=== PATIENT | male | born 1950 | race Caucasian/White ===

== ENCOUNTER → 2016-12-16 | Outpatient (CLI) | payer OTHER ==
[~2016-12-16] MED LIST: CLOP1TAB15 PO; EZET10TA63 PO; METO25TA3 PO; SIMV40TA2 PO
== END | disposition home or self-care (01) ==
LOC: C.LABSPEC 14:48
PROVIDERS: ATTEND Internal Medicine
DX: Z12.11 Encounter for screening for malignant neoplasm of colon (principal)

== ENCOUNTER → 2017-05-05 | Outpatient (CLI) | payer OTHER ==
[2017-05-05 13:19] LABS: ESTIMATED AVERAGE GLUCOSE 128 mg/dl; HA1C FLAG Normal (Normal)
[2017-05-05 13:51] LABS: BLOOD UREA NITROGEN 17 mg/dl (7-18); CALCIUM 8.8 mg/dl (8.5-10.1); CARBON DIOXIDE 27 mmol/L (21-32); CHLORIDE 108 mmol/L (98-107); CHOLESTEROL 130 mg/dl (0-200); GLUCOSE 124 mg/dl (70-99); POTASSIUM 4.1 mmol/L (3.5-5.1); SODIUM 140 mmol/L (136-145); TRIGLYCERIDES 182 mg/dl (0-150); VERY LOW DENSITY LIPOPROT CALC 36 mg/dl
[2017-05-05 13:56] LABS: CHOLESTEROL/HDL RATIO 3.9; HDL CHOLESTEROL 33 mg/dl
== END | disposition home or self-care (01) ==
LOC: C.LABSPEC 12:15
PROVIDERS: ATTEND Internal Medicine
DX: I25.10 Atherosclerotic heart disease of native coronary artery without angina pectoris (principal); E78.5 Hyperlipidemia, unspecified; R73.9 Hyperglycemia, unspecified

== ENCOUNTER → 2017-09-08 | Outpatient (CLI) | payer OTHER ==
[~2017-09-08] MED LIST changes: +ATOR-24 PO; +LISI2.5T5 PO; +OMEG10007 PO; +OXYC-57 PO
[2017-09-08 09:58] LABS: BASO % 0.4 %; BASO ABS # 0.03 K/uL (0-0.2); COMPLETE YES; EOS % 3.6 %; HEMATOCRIT 45.6 % (42-52); IG% 0.3 %; LYMPH % 29.3 %; MEAN CELL VOLUME 88.4 fL (80-100); MEAN CORPUSCULAR HEMOGLOBIN 30.2 pg (25-34); MEAN CORPUSCULAR HGB CONC 34.2 g/dl (32-36); MONO % 7.7 %; NEUT % 58.7 %; PLATELET COUNT 146 K/uL (130-400); RED BLOOD COUNT 5.16 M/uL (4.7-6.1); WHITE BLOOD COUNT 7.84 K/uL (4.8-10.8)
[2017-09-08 10:05] LABS: BLOOD UREA NITROGEN 18 mg/dl (7-18); BUN/CREATININE RATIO 16.5 (10-20); CALCIUM 8.9 mg/dl (8.5-10.1); CARBON DIOXIDE 26 mmol/L (21-32); CHLORIDE 106 mmol/L (98-107); CREATININE 1.12 mg/dl (0.60-1.40); GLUCOSE 130 mg/dl (70-99); POTASSIUM 3.8 mmol/L (3.5-5.1); SODIUM 136 mmol/L (136-145)
== END | disposition home or self-care (01) ==
LOC: C.CPL 08:12
PROVIDERS: ATTEND Orthopaedic Surgery
DX: M75.121 Complete rotator cuff tear or rupture of right shoulder, not specified as traumatic (principal)

== ENCOUNTER → 2017-09-15 | Day surgery (SDC) | payer OTHER ==
[2017-09-09 12:32] VITALS: Ht 182.9 cm; Wt 115.0 kg
[~2017-09-15] VITALS: Ht 182.9 cm; Wt 115.0 kg
[~2017-09-15] MED LIST changes: +ATROPINE SULFATE 0.1 MG/ML 5ML SYR IV PRN; +BUPIVACAINE/EPINEPHRINE 0.25% 1:200,000 30 ML VIAL ONE; +CEFAZOLIN 2000MG IV PUSH 10 ML IV SCH; -EZET10TA63 PO; +EpHEDrine SULFATE INJ 50 MG/ML AMP IV PRN; +EpINEphrine INJ 1MG/ML AMP 1 MG/ML AMP ONE; +FENTANYL CITRATE INJ 50 MCG/1 ML 2 ML VIAL IV PRN; +FENTANYL CITRATE INJ 50 MCG/1 ML 2 ML VIAL ONE; +LACTATED RINGER'S 1000ML 1,000 ML IV SCH; +LISI-1116 PO; -LISI2.5T5 PO; +MIDAZOLAM HCL 1 MG/ML 2ML VIAL ONE; +ONDANSETRON INJ 2 MG/ML 2 ML VIAL IV PRN; +OXYCODONE/ACETAMINOPHEN 5-325 TAB PO PRN; +PROPOFOL IV EMULSION 10 MG/ML 20 ML VIAL IV ONE; +ROPIVACAINE 0.5% 5 MG/ML 30 ML VIAL ONE; -SIMV40TA2 PO; +SODIUM CHLORIDE 0.9% 1000ML 1,000 ML IV SCH
--- NOTE | 2017-09-15 11:12 | History & Physical Bridge - [place] ---
H&P Re-Evaluation Bridge Note: I have examined the patient, reviewed the History & Physical and in the interval since the performance of the History & Physical I have noted the following changes of clinical significance: No changes noted
--- NOTE | 2017-09-15 14:10 | [facility] Post Operative Brief Note ---
Immediate Operative Summary Operative Date Sep 15, 2017. Pre-Operative Diagnosis Right Shoulder Full Thickness Rotator Cuff Tear Post-Operative Diagnosis Same Procedure(s) Performed Right Shoulder Arthroscopy, Large Rotator Cuff Repair Surgeon Dr. Wilder Police Records Clerk Surgeon(s) David Hall PA-C Estimated Blood Loss 5 ml Findings as above Specimens None Complication(s) None Disposition Recovery Room / PACU
[2017-09-15 14:11] VITALS: TEMP 36.3
--- NOTE | 2017-09-15 14:12 | Discharge Instructions-SurgCtr ---
Discharge Instructions Date of Service Sep 15, 2017. Visit Reason for Visit: Right Shoulder Full Thickness Rotator Cuff Tear Discharge Discharge Diagnosis / Problem: SAME ABOVE Discharge Goals Goal(s): Decrease discomfort, Improve function Medications Stopped Medications Name(s): Last took Plavix and fish oil 09/07/17. Restart Stopped Medication(s): MAY RESTART 09/16/2017 Activity Recommendations Activity Limitations: as noted below Lifting Limitations: until after follow-up appointment Exercise/Sports Limitations: until after follow-up appointment Shower/Bathe: tomorrow Anesthesia . Post Anesthesia Instructions: If you have had General Anesthesia or IV Sedation: * Do not drive today. * Resume driving when surgeon permits. * Do not make important decisions or sign legal documents today. * Call surgeon for: 1. Temperature elevations greater than 101 degrees F. 2. Uncontrollable pain. 3. Excessive bleeding. 4. Persistent nausea and vomiting. 5. Medication intolerance (nausea, vomiting or rash). * For nausea and vomiting use only clear liquids such as: tea, soda, bouillon until nausea subsides, then gradually increase diet as tolerated. * If you have any concerns or questions, call your surgeon's office. If physician is unavailable and it is an emergency, call 911 or go to the nearest emergency room. . Instructions / Follow-Up Instructions / Follow-Up MEDICATIONS: * Resume previous medications unless instructed otherwise by your surgeon. * Always take pain medication on a full stomach or with food to avoid upset stomach. * Do not drink alcohol or drive while taking narcotics. * Ibuprofen or Tylenol may be taken if narcotic not needed. SPECIAL CARE INSTRUCTIONS: __ None _X_ Keep extremity elevated and iced x 48 hours; apply ice 20-30 minutes 8-10 times/day. May remove at night. __ Sling __24 hrs/day __ Remove at night _X_ Shoulder Immobilizer (MAY REMOVE AFTER 48 HOURS ONLY TO SHOWER) _X_ 24 hrs/day __ Remove at night _X_ Dressing __ Maintain until seen in office, may shower with plastic over site _X_ Remove dressings in 24-48 hours and then may shower _X_ Cover incisions with band-aids after showering __ Do not remove steri-strips Call physician if chills or temperature rises above 102 degrees or pain unrelieved by prescribed pain medications at . . Diet Recommendations Home Diet: no limitations Fluid Restriction: None Procedures Procedures Performed: Right Shoulder Arthroscopy, Large Rotator Cuff Repair Pending Studies Studies pending at discharge: no Work Instructions Return To Work: after follow-up Lifting Limitations: NO LIFTING WITH RIGHT ARM Medical Emergencies . Who to Call and When: Medical Emergencies: If at any time you feel your situation is an emergency, please call 911 immediately. . Non-Emergent Contact Non-Emergency issues call your: Primary Care Provider Call Non-Emergent contact if: you have a fever, temperature is above 101.5 . . "Provider Documentation" section prepared by Juan Hall. .
--- NOTE | 2017-09-15 14:28 | Anesthesia Progress Nt - [facility] ---
Anesthesia Post Op Note Date & Time Sep 15, 2017 at 14:28 Vital Signs Pain Intensity: 0 Vital Signs Past 12 Hours Date Time Temp Pulse Resp B/P (MAP) Pulse Ox O2 Delivery O2 Flow Rate FiO2 09/15/17 14:11 36.3 69 16 138/91 (107) 94 Room Air 09/15/17 12:36 70 17 97 09/15/17 12:36 71 09/15/17 12:35 126/80 09/15/17 12:31 68 17 96 09/15/17 12:31 69 09/15/17 12:30 123/76 09/15/17 12:26 74 09/15/17 12:26 75 34 87 09/15/17 12:25 121/78 09/15/17 12:21 69 09/15/17 12:21 69 17 97 09/15/17 12:20 116/71 09/15/17 12:16 70 16 97 09/15/17 12:16 69 09/15/17 12:15 119/73 09/15/17 12:11 76 26 97 09/15/17 12:11 74 09/15/17 12:10 122/75 09/15/17 12:08 71 17 96 09/15/17 12:08 72 09/15/17 12:05 121/77 09/15/17 12:03 70 09/15/17 12:03 71 17 97 09/15/17 12:00 117/79 09/15/17 11:58 75 20 95 09/15/17 11:58 75 09/15/17 11:55 120/84 09/15/17 11:53 73 17 126/85 97 09/15/17 11:53 73 09/15/17 11:48 78 09/15/17 11:48 79 0 94 09/15/17 11:43 65 09/15/17 11:43 66 0 94 09/15/17 11:38 63 09/15/17 11:38 64 0 95 09/15/17 11:33 68 0 93 09/15/17 11:33 67 09/15/17 10:19 36.4 69 18 129/99 (109) 95 Room Air Notes Mental Status: alert / awake / arousable, participated in evaluation Pt Amnestic to Procedure: Yes Nausea / Vomiting: adequately controlled Pain: adequately controlled Airway Patency, RR, SpO2: stable & adequate BP & HR: stable & adequate Hydration State: stable & adequate Anesthetic Complications: no major complications apparent
--- NOTE | 2017-09-15 14:36 | OPERATIVE REPORT ---
DATE OF OPERATION: 09/15/2017 PREOPERATIVE DIAGNOSIS: Large right rotator cuff tear. POSTOPERATIVE DIAGNOSIS: Same. PROCEDURE: Right shoulder diagnostic arthroscopy with limited debridement, acromioplasty, large rotator cuff repair and arthroscopic biceps tenodesis. SURGEON: Dr. Gian Wilder. SYSTEMS ANALYST ENGINEER: Juan Hall PA-C, whose assistance was necessary for positioning the arm and helping with the instrumentation. ANESTHESIA: General with a right interscalene nerve block. COMPLICATIONS: None. CONDITION: Stable to PACU. INDICATIONS: Chava is a pleasant 67-year-old male who was loading a cooler into the back of a car about a month ago when he felt a pop in his shoulder. He has been unable to forward elevate his arm. MRI showed a large rotator cuff tear. He elected to undergo arthroscopy. On 09/15/2017, he arrived at [facility] for the above procedure. He was seen in the preoperative holding area and the operative extremity was identified and signed. He was given a preoperative antibiotic and a right interscalene nerve block. He was taken back to the operating room, laid on the table in supine position and put under general anesthesia. He was then put into the beachchair position. The right shoulder was prepped and draped in sterile fashion. Time-out was done and the patient and operative extremity was properly identified. A scope was introduced in the posterior portal. Diagnostic arthroscopy showed no cartilage damage to the humeral head or the glenoid. There was some fraying of the anterior labrum. The biceps tendon was intact, but significantly frayed. The subscapularis was intact. There was a tear of the entire supraspinatus and upper half of the infraspinatus. The remainder of the infraspinatus and teres minor were intact. An anterior portal was made. A shaver was used to do a limited debridement of the intraarticular structures and the biceps tendon was arthroscopically tenotomized for later tenodesis. A scope was then put into the subacromial space. A lateral portal was made. A shaver was used to do a complete subacromial and subdeltoid bursectomy. An ablator was used to tease the coracoacromial ligament off the undersurface of the acromion and a 5-0 jet was used to complete an acromioplasty of a large Bigliani type 3 acromion. A shaver was used to remove any excess debris and attention was turned to the rotator cuff. An additional anterolateral portal was made and Shayla cannulas were placed in each of the lateral portals. There was a large crescent shaped rotator cuff tear. The greater tuberosity was prepared with a ring curette and a microfracture. The rotator cuff was then fixed with an Arthrex SpeedBridge configuration using 4.75 mm BioComposite SwiveLock suture anchors and FiberTapes. This gave a nice knotless SpeedBridge repair. Multiple pictures were taken. The long head of the biceps tendon was tagged with an Arthrex FiberLink and incorporated into the anterior lateral anchor to complete an arthroscopic biceps tenodesis. Multiple pictures were taken. The scope was placed back into the glenohumeral joint and the articular margin of rotator cuff had been restored. Pictures were taken. Arthroscopic instruments were removed from the shoulder. Portal sites were closed with 3-0 nylon. He was then placed in a soft dressing and an abduction arm sling. He was then extubated, transferred to a litter and taken to the postanesthesia care unit in stable condition. He tolerated the procedure well. I attest to the content of the Intraoperative Record and any orders documented therein. Any exception s are noted below.
[2017-09-15 14:37] VITALS: BP 114/75; PULSE 66; O2SAT 95
== END | disposition home or self-care (01) ==
LOC: X.SURG 09:59
PROVIDERS: ATTEND Orthopaedic Surgery
DX: S46.011A Strain of muscle(s) and tendon(s) of the rotator cuff of right shoulder, initial encounter (principal); X50.0XXA Overexertion from strenuous movement or load, initial encounter; I25.10 Atherosclerotic heart disease of native coronary artery without angina pectoris; I25.2 Old myocardial infarction; I50.9 Heart failure, unspecified; Z95.5 Presence of coronary angioplasty implant and graft; E66.9 Obesity, unspecified; Z79.899 Other long term (current) drug therapy

== ENCOUNTER → 2017-12-27 | Outpatient (CLI) | payer OTHER ==
[~2017-12-27] MED LIST changes: -ATROPINE SULFATE 0.1 MG/ML 5ML SYR IV PRN; -BUPIVACAINE/EPINEPHRINE 0.25% 1:200,000 30 ML VIAL ONE; -CEFAZOLIN 2000MG IV PUSH 10 ML IV SCH; -EpHEDrine SULFATE INJ 50 MG/ML AMP IV PRN; -EpINEphrine INJ 1MG/ML AMP 1 MG/ML AMP ONE; -FENTANYL CITRATE INJ 50 MCG/1 ML 2 ML VIAL IV PRN; -FENTANYL CITRATE INJ 50 MCG/1 ML 2 ML VIAL ONE; -LACTATED RINGER'S 1000ML 1,000 ML IV SCH; -MIDAZOLAM HCL 1 MG/ML 2ML VIAL ONE; -ONDANSETRON INJ 2 MG/ML 2 ML VIAL IV PRN; -OXYCODONE/ACETAMINOPHEN 5-325 TAB PO PRN; -PROPOFOL IV EMULSION 10 MG/ML 20 ML VIAL IV ONE; -ROPIVACAINE 0.5% 5 MG/ML 30 ML VIAL ONE; -SODIUM CHLORIDE 0.9% 1000ML 1,000 ML IV SCH
[2018-01-02 18:21] LABS: FECAL OCCULT BLOOD #1 NEGATIVE (NEGATIVE); FECAL OCCULT BLOOD #2 NEGATIVE (NEGATIVE); FECAL OCCULT BLOOD #3 NEGATIVE (NEGATIVE)
== END | disposition home or self-care (01) ==
LOC: C.LABSPEC 17:24
PROVIDERS: ATTEND Internal Medicine
DX: Z12.11 Encounter for screening for malignant neoplasm of colon (principal)

== ENCOUNTER → 2018-04-28 | Outpatient (CLI) | payer OTHER ==
[~2018-04-28] MED LIST changes: -OXYC-57 PO
[2018-04-28 13:26] LABS: ALBUMIN 3.8 gm/dl (3.4-5.0); ALKALINE PHOSPHATASE 70 U/L (45-117); ALT/SGPT 51 U/L (12-78); AST/SGOT 32 U/L (15-37); BLOOD UREA NITROGEN 16 mg/dl (7-18); CALCIUM 8.6 mg/dl (8.5-10.1); CARBON DIOXIDE 24 mmol/L (21-32); CHOLESTEROL 120 mg/dl (0-200); GLUCOSE 114 mg/dl (70-99); HEMOGLOBIN A1C 6.1 % (4.5-5.6); LDL CHOLESTEROL CALCULATED 47 mg/dl; POTASSIUM 4.1 mmol/L (3.5-5.1); SODIUM 137 mmol/L (136-145); TOTAL PROTEIN 7.5 gm/dl (6.4-8.2)
== END | disposition home or self-care (01) ==
LOC: C.LABSPEC 12:40
PROVIDERS: ATTEND Internal Medicine Cardiovascular Disease
DX: R73.9 Hyperglycemia, unspecified (principal); I11.9 Hypertensive heart disease without heart failure; I51.9 Heart disease, unspecified; E78.00 Pure hypercholesterolemia, unspecified

== ENCOUNTER 2023-10-13 09:31 | Observation (INO) ==
[2023-10-13 10:20] LABS: Basophils # (auto) 0.04 K/uL (0.00-0.20); Basophils % (auto) 0.3 %; Eosinophils # (auto) 0.12 K/uL (0.00-0.50); Eosinophils % (auto) 0.8 %; Hematocrit (blood only) 38.4 % (42.0-52.0); Hemoglobin 12.6 g/dl (14.0-18.0); Immature Granulocytes # (auto) 0.05 K/uL (0.01-0.20); Immature Granulocytes % (auto) 0.3 %; Lymphocytes % (auto) 9.8 %; Mean Corpuscular Hemoglobin 27.2 pg (25.0-34.0); Mean Corpuscular Hgb Conc 32.8 g/dL (32.0-36.0); Mean Corpuscular Volume 82.8 fL (80.0-100.0); Mean Platelet Volume 12.2 fL (9.4-12.4); Monocytes % (auto) 9.1 %; Neutrophils # (auto) 11.41 K/uL (1.40-6.50); Neutrophils % (auto) 79.7 %; Platelet Count 165 K/uL (130-400); RDW Coefficient of Variation 15.2 % (11.5-14.5); RDW Standard Deviation 45.5 fL (36.4-46.3); Red Blood Count 4.64 M/uL (4.70-6.10); White Blood Count 14.32 K/ul (4.8-10.8)
[2023-10-13 10:35] LABS: Albumin Globulin Ratio 1.2 (0.9-2); Albumin Level 4.1 gm/dl (3.4-5.0); Bilirubin,Total 0.7 mg/dl (0.2-1.0); Creatinine Clr Calc Pharmacy 46.4 ml/min; Est GFR (African American) 41.5 ml/min; Est GFR (Non-African American) 35.8 ml/min; Globulin 3.5 gm/dl (2.5-4.0); Total Protein 7.6 gm/dl (6.0-8.3)
[2023-10-13 10:41] LABS: Troponin I High Sensitivity 7.9 pg/ml (0-20)
[2023-10-13 10:47] LABS: INR 1.1 (0.9-1.1); Partial Thromboplastin Ratio 1.1; Partial Thromboplastin Time 32 Seconds (21-31); Prothrombin Time 12.3 Seconds (9.0-12.0)
--- NOTE | 2023-10-13 10:48 | Emergency Department Note ---
Impression & Plan SEGUN (acute kidney injury), BPH (benign prostatic hyperplasia), Volume overload, Urinary retention, Pulmonary edema, PAF (paroxysmal atrial fibrillation) ED Provider Note NAME: BONNY BIRD AGE: 73 SEX: M : 1950 ARRIVES VIA: Walk-In INFORMANT: Patient, ED PROVIDER(S): Santos Vazquez MD CHIEF COMPLAINT: Chest pain, abdominal pain MEDICAL DECISION MAKING: Patient presents due to concern for chest and abdominal pain. IV was established and blood work was obtained. CT T of the abdomen pelvis was ordered without contrast given the patient's associated SEGUN. BNP ordered and repeat troponin. Initial EKG shows sinus with PVCs. No obvious ST elevations. Patient's initial white count of 14 with a hemoglobin of 12.6. This is down trended since 2018 although not significantly changed from May 2023 when it was 13.4. Platelet count unremarkable. Kidney function with SEGUN and prerenal azotemia. Baseline creatinine 0.8 today is 1.8. Initial troponin is negative. LFTs unremarkable. Lipase was added. Patient was ordered IV Lasix. CT abdomen pelvis does show chronic bladder outlet obstruction. Chest x-ray does show the possibility of pulmonary edema versus interstitial thickening. The patient did have bibasilar crackles noted. BNP is elevated as well. I did speak with the on-call hospital service Dr. Bravo and the patient was admitted to the medicine service Discussion w/ other healthcare providers: Dr. Bravo inpatient medicine service Prior /Outside records reviewed: Reviewed outpatient cardiology visit note from Dr. Retana. Patient had newly discovered A-fib yesterday was seen in clinic and had converted back to sinus rhythm. Patient did have his Plavix discontinued. Patient did have his metoprolol increased from 25 to 50 mg daily and started Eliquis 5 twice daily. Differential diagnosis: Cardiac ischemia, aortic dissection, pulmonary embolism, pneumothorax, pneumonia, pericarditis, myocarditis, GERD, cholecystitis, pancreatitis, musculoskeletal, as well as other pathologies were considered. Diagnostics, as interpreted by me: ECG: Sinus with PVCs, rate of 70, normal intervals, normal axis no ST elevations. Cardiac monitoring: An order was placed for continuous cardiac monitoring. The monitor shows a rate of 72 with sinus rhythm. Patient was placed on pulse oximetry Medical decision rules: None Imaging studies: I informally interpreted the patient's chest x-ray which does not show obvious pneumothorax with formal report to follow. HPI: Patient presents due to concern for chest pain and abdominal pain. The patient did have recent follow-up with Dr. Leon as well as Dr. Retana for A-fib had an increase in his metoprolol and was started on Eliquis. Patient states that he does have a chronic history of ulcerative colitis and follows with Lorrie Jones. The patient states that this morning he noticed some left-sided chest pain that he describes as a dull constant ache. It is nonradiating not necessarily exertional and not associated with vomiting or diaphoresis. The patient's had mild nausea. He did try to drink some soda this morning which seem to upset his stomach and cause some worsening symptoms. Patient states that he does have upper abdominal pain. He did notice some blood in the stools this morning he states that he does have a prior history of 2 recent colonoscopies in the last year and is not aware of any prior hemorrhoids. Patient denies any straining or constipation. Patient did not take anything for symptoms this morning did not take his home medications. Patient denies any hematuria or dysuria. Patient denies any shortness of breath. 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 Patient states that his lower extremity swelling is unchanged. Patient denies any increase in salt or processed foods in the diet. PAST MEDICAL HISTORY: See Below PAST SURGICAL HISTORY: See Below SOCIAL HISTORY: See Below HOME MEDICATIONS: See Below ALLERGIES: See Below VITALS: See Below PHYSICAL EXAMINATION: GENERAL: NAD, non-toxic. EYE EXAM: Normal conjunctiva. PERRL, no anisocoria and EOM's grossly intact w/o pain. OROPHARYNX: Moist mucus membranes, grossly normal dentition. NECK: Supple, no nuchal rigidity, no adenopathy, non-tender. No signs of meningismus. FROM of the neck with good chin to chest and neck extension. No stridor. LUNGS: Bibasilar crackles. Normal chest wall mechanics. HEART: NSR, no MRG. ABDOMEN: Abdomen soft, upper abdominal pain, no lower abdominal pain, no masses, no rebound or guarding. BACK: No CVA TTP. SKIN: No rashes and no bruising. UPPER EXTREMITIES: Upper extremities are grossly normal. LOWER EXTREMITIES: Grossly normal, 1+ symmetric lower extremity edema without any calf pain or erythema NEURO EXAM: A&O x3, cranial nerves II-XII grossly intact, normal speech, moves all 4 extremities. Past Med/Surg History Medical History Allergy status to unspecified drugs, medicaments and biological substances Aspirin allergy BPH (benign prostatic hyperplasia) Elevated prostate specific antigen (PSA) Shoulder pain with history of repair of rotator cuff Family History Mother Colorectal cancer Father Heart disease Social History Smoking Status: Former smoker Hx Alcohol Use: Yes Hx Substance Use: No Preferred Language: Venezuelan Communication Ability: Effective Clinical Office Technician Required: No Beliefs That Will Affect Care: None marital status: Single Current Living Situation: Significant Other current occupational status: employed 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 [employer] How many Children do You have: 2 Feels Safe at Home: Yes Assistive Devices: Wheelchair Allergies Allergies Allergy/AdvReac Type Severity Reaction Status Date / Time aspirin Allergy Hives Verified 10/14/23 09:12 Home Meds Home Medications Medication Instructions Recorded Confirmed cinnamon bark 1,000 mg PO BID 02/26/20 10/13/23 garlic 1,000 mg capsule 1,000 mg PO DAILY 02/26/20 10/13/23 multivitamin (Daily Multi-Vitamin 1 tab PO DAILY 02/26/20 10/13/23 tablet) psyllium husk [Daily Fiber] PO QID 01/18/23 10/04/23 metoprolol succinate 50 mg 25 mg PO BID 10/12/23 10/13/23 tablet,extended release 24 hr aspirin 81 mg tablet,delayed 81 mg PO DAILY 10/13/23 10/13/23 release mesalamine 1.2 gram tablet,delayed 2.4 g PO DAILY 10/13/23 10/13/23 release Previous Rx's Medication Instructions Recorded atorvastatin 40 mg tablet 40 mg PO DAILY #90 tabs 07/08/22 lisinopril 2.5 mg tablet 2.5 mg PO DAILY #90 tabs 07/08/22 nitroglycerin 0.4 mg sublingual 0.4 mg sublingual Q5M PRN chest 10/04/23 tablet pain #20 tabs apixaban 5 mg tablet (Eliquis) 5 mg PO BID #180 tabs 10/12/23 finasteride 5 mg tablet 5 mg PO DAILY #30 tabs 10/15/23 sulfamethoxazole 800 1 tab PO BID 10 days #20 tabs 10/15/23 mg-trimethoprim 160 mg tablet (Bactrim DS) tamsulosin 0.4 mg capsule 0.4 mg PO HS #30 caps 10/15/23 Results & Data (ED) Vital Signs Vital Signs - 24 hr 10/13/23 09:35 10/13/23 11:49 10/13/23 11:49 Temperature 36.5 C Temperature Source Temporal Artery Scan Pulse Rate 69 Pulse Rate [Apical] 72 Pulse Rhythm Regular Pulse Rhythm [Apical] Regular Pulse Strength [Apical] Normal Respiratory Rate 20 20 Respiratory Effort / Characteristics Non-Labored Spontaneous Non-Labored Spontaneous Respiratory Depth Normal Normal Respiratory Pattern Regular Blood Pressure 153/87 H Blood Pressure [Right Arm] 153/91 H Blood Pressure Mean 109 Blood Pressure Mean [Right Arm] 111 Blood Pressure Position [Right Arm] Sitting Pulse Oximetry 97 97 96 Oxygen Delivery Method Room Air Room Air Room Air Sepsis Recent Fever Within 48 Hours No Sepsis New/Unexplained Change in Mental Status No Sepsis Action Taken by Nursing No Action Required 10/13/23 11:49 Temperature Temperature Source Pulse Rate 72 Pulse Rate [Apical] Pulse Rhythm Regular Pulse Rhythm [Apical] Pulse Strength [Apical] Respiratory Rate 20 Respiratory Effort / Characteristics Respiratory Depth Respiratory Pattern Blood Pressure Blood Pressure [Right Arm] Blood Pressure Mean Blood Pressure Mean [Right Arm] Blood Pressure Position [Right Arm] Pulse Oximetry 96 Oxygen Delivery Method Room Air Sepsis Recent Fever Within 48 Hours Sepsis New/Unexplained Change in Mental Status Sepsis Action Taken by [facility] Medications Current Medication List: was personally reviewed by me Laboratory Data Attestation: I reviewed the patient's lab results. 10/15/23 05:33 10/15/23 05:33 Lab Results 10/13/23 10/13/23 Range/Units 09:53 11:57 WBC 14.32 H (4.8-10.8) K/ul RBC 4.64 L (4.70-6.10) M/uL Hgb 12.6 L (14.0-18.0) g/dl Hct 38.4 L (42.0-52.0) % MCV 82.8 (80.0-100.0) fL MCH 27.2 (25.0-34.0) pg MCHC 32.8 (32.0-36.0) g/dL RDW Std Deviation 45.5 (36.4-46.3) fL RDW Coeff of Zak 15.2 H (11.5-14.5) % Plt Count 165 (130-400) K/uL MPV 12.2 (9.4-12.4) fL Immature Gran % (Auto) 0.3 % Neut % (Auto) 79.7 % Lymph % (Auto) 9.8 % [place] % (Auto) 9.1 % Eos % (Auto) 0.8 % Baso % (Auto) 0.3 % Neut # (Auto) 11.41 H (1.40-6.50) K/uL Lymph # (Auto) 1.40 (1.20-3.40) K/uL [place] # (Auto) 1.30 H (0.11-0.59) K/uL Eos # (Auto) 0.12 (0.00-0.50) K/uL Baso # (Auto) 0.04 (0.00-0.20) K/uL Immature Gran # (Auto) 0.05 (0.01-0.20) K/uL PT 12.3 H (9.0-12.0) Seconds INR 1.1 (0.9-1.1) APTT 32 H (21-31) Seconds PTT Ratio 1.1 Sodium 143 (136-145) mmol/L Potassium 4.0 (3.5-5.1) mmol/L Chloride 109 H (98-107) mmol/L Carbon Dioxide 26 (21-32) mmol/L Anion Gap 8 (3-11) BUN 44 H (6-23) mg/dl Creatinine 1.83 H (0.6-1.4) mg/dl Est Cr Clr Drug Dosing 46.4 ml/min Est GFR ( Amer) 41.5 ml/min Est GFR (Non-Af Amer) 35.8 ml/min BUN/Creatinine Ratio 24.0 H (10-20) Glucose 126 H (70-99(Fasting)) mg/dl Calcium 9.0 (8.6-10.3) mg/dl Total Bilirubin 0.7 (0.2-1.0) mg/dl AST 34 (13-39) U/L ALT 48 (7-52) U/L Alkaline Phosphatase 89 (34-104) U/L Troponin I High Sens 7.9 8.2 (0-20) pg/ml B-Natriuretic Peptide 644 H (0-100) pg/ml Total Protein 7.6 (6.0-8.3) gm/dl Albumin 4.1 (3.4-5.0) gm/dl Globulin 3.5 (2.5-4.0) gm/dl Albumin/Globulin Ratio 1.2 (0.9-2) Lipase 62 (11-82) U/L Procalcitonin < 0.05 (0-0.5) ng/ml Administered Medications Discontinued Medications Albuterol (Albuterol 0.5% Neb Soln 2.5 Mg/0.5 Ml Vial) 2.5 mg NEB Q6R REBA; Protocol Stop: 11/12/23 18:59 Last Admin: 10/14/23 19:34 Dose: 2.5 mg Documented By: Admin: 10/14/23 13:51 Dose: 2.5 mg Documented By: Admin: 10/14/23 06:14 Dose: 2.5 mg Documented By: Admin: 10/14/23 01:21 Dose: Not Given Documented By: Admin: 10/13/23 19:29 Dose: 2.5 mg Documented By: CHERIE Apixaban (Apixaban 5 Mg Tablet) 5 mg PO BID [facility] Stop: 11/12/23 20:59 Last Admin: 10/15/23 09:39 Dose: 5 mg Documented By: Admin: 10/14/23 21:56 Dose: 5 mg Documented By: Admin: 10/14/23 09:28 Dose: 5 mg Documented By: Admin: 10/13/23 21:09 Dose: 5 mg Documented By: DELON Aspirin (Aspirin 81 Mg Ectab) 81 mg PO DAILY [facility] Stop: 11/13/23 08:59 Last Admin: 10/15/23 09:40 Dose: 81 mg Documented By: Admin: 10/14/23 09:28 Dose: 81 mg Documented By: KRISTYN Atorvastatin Calcium (Atorvastatin 40 Mg Tab) 40 mg PO DAILY [facility] Stop: 11/13/23 08:59 Last Admin: 10/15/23 09:39 Dose: 40 mg Documented By: Admin: 10/14/23 09:28 Dose: 40 mg Documented By: KRISTYN Finasteride (Finasteride 5 Mg Tab) 5 mg PO QAM REBA Stop: 11/14/23 08:59 Last Admin: 10/15/23 13:09 Dose: 5 mg Documented By: KYLEE Furosemide (Furosemide 40 Mg/4 Ml Vial) 40 mg IV ONE ONE Stop: 10/13/23 12:57 Last Admin: 10/13/23 13:06 Dose: 40 mg Documented By: MARGARITA Furosemide (Furosemide 40 Mg/4 Ml Vial) 40 mg IV DAILY REBA Stop: 11/13/23 08:59 Last Admin: 10/14/23 09:30 Dose: 40 mg Documented By: KRISTYN Magnesium Sulfate/Dextrose (Magnesium Sulfate / D5w) 1 gm in 100 mls @ 50 mls/hr IV Q2H REBA Stop: 10/14/23 23:44 Last Infusion: 10/14/23 23:50 Dose: Infused Documented By: NDDaren Admin: 10/14/23 21:50 Dose: 50 mls/hr Documented By: Infusion: 10/14/23 21:50 Dose: Infused Documented By: NDDaren Infusion: 10/14/23 21:49 Dose: 50 mls/hr Documented By: Admin: 10/14/23 19:55 Dose: 50 mls/hr Documented By: NDL Lactated Ringer's (Lr) 500 mls @ 999 mls/hr IV .Q31M ONE Stop: 10/14/23 20:11 Last Infusion: 10/14/23 20:30 Dose: Infused Documented By: Admin: 10/14/23 19:54 Dose: 999 mls/hr Documented By: NDL Lactated Ringer's (Lr) 500 mls @ 999 mls/hr IV .Q31M ONE Stop: 10/15/23 00:57 Last Infusion: 10/15/23 01:16 Dose: Infused Documented By: Admin: 10/15/23 00:33 Dose: 999 mls/hr Documented By: NDL Lactated Ringer's (Lr) 1,000 mls @ 125 mls/hr IV .Q8H REBA Stop: 11/14/23 01:59 Last Infusion: 10/15/23 08:41 Dose: Infused Documented By: Admin: 10/15/23 02:02 Dose: 125 mls/hr Documented By: NATHALIA Potassium Chloride (K Darrian / Wtr) 10 meq in 100 mls @ 100 mls/hr IV Q1H REBA Stop: 10/15/23 04:29 Last Infusion: 10/15/23 05:33 Dose: Infused Documented By: Admin: 10/15/23 04:01 Dose: 100 mls/hr Documented By: Infusion: 10/15/23 04:00 Dose: Infused Documented By: Admin: 10/15/23 02:58 Dose: 100 mls/hr Documented By: NATHALIA Metoprolol Succinate (Metoprolol Succ 25mg Ext Rel Tab) 25 mg PO BID REBA Stop: 11/12/23 20:59 Last Admin: 10/15/23 09:24 Dose: Not Given Documented By: [id number] Admin: 10/14/23 09:28 Dose: 25 mg Documented By: Admin: 10/13/23 21:29 Dose: 25 mg Documented By: DELON Metoprolol Succinate (Metoprolol Succ 50mg Ext Rel Tab) 50 mg PO BID REBA Stop: 11/13/23 21:44 Last Admin: 10/14/23 21:56 Dose: 50 mg Documented By: NATHALIA Metoprolol Succinate (Metoprolol Succ 25mg Ext Rel Tab) 25 mg PO BID REBA Stop: 11/14/23 08:59 Last Admin: 10/15/23 09:40 Dose: 25 mg Documented By: KYLEE Miscellaneous (Mesalamine--Order Awaiting Action) 1 each N/A QS REBA Stop: 11/13/23 00:00 Last Admin: 10/15/23 09:24 Dose: Not Given Documented By: [id number] Admin: 10/15/23 00:01 Dose: Not Given Documented By: Admin: 10/14/23 15:08 Dose: Not Given Documented By: Admin: 10/14/23 08:51 Dose: Not Given Documented By: Admin: 10/14/23 01:16 Dose: Not Given Documented By: JJLeigha Potassium Chloride (Potassium Chloride Crtab 20 Meq Tabcr) 40 meq PO NOW STA Stop: 01/26/24 09:11 Last Admin: 10/14/23 09:28 Dose: 40 meq Documented By: KRITSYN Potassium Chloride (Potassium Chloride Crtab 20 Meq Tabcr) 40 meq PO NOW STA Stop: 10/14/23 19:39 Last Admin: 10/14/23 19:53 Dose: 40 meq Documented By: NATHALIA Tamsulosin HCl (Tamsulosin Hcl 0.4 Mg Cap) 0.4 mg PO HS REBA Stop: 11/12/23 20:59 Last Admin: 10/14/23 21:56 Dose: 0.4 mg Documented By: Admin: 10/13/23 21:09 Dose: 0.4 mg Documented By: ACC Imaging Data Radiologist's Impression: Chest X-Ray 10/13/23 09:39 XR chest 1V not portable CLINICAL HISTORY: Chest pain, nonspecific COMPARISON STUDY: No previous studies for comparison. FINDINGS: There is no pneumothorax. Possible trace right pleural effusion. Mild lower lung interstitial thickening is present. There is mild cardiomegaly. No consolidation is identified. IMPRESSION: 1. Subtle lower lung interstitial thickening. This is likely within normal limits although mild pulmonary edema or an infectious process cannot be excluded. No consolidation identified. 2. Suspected trace right pleural effusion. ACT 112: Negative or not required by law. Electronically signed by: Bryan Khan M.D. 10/13/2023 10:50 AM Chest X-Ray 10/13/23 09:39 XR chest 1V not portable CLINICAL HISTORY: Chest pain, nonspecific COMPARISON STUDY: No previous studies for comparison. FINDINGS: There is no pneumothorax. Possible trace right pleural effusion. Mild lower lung interstitial thickening is present. There is mild cardiomegaly. No consolidation is identified. IMPRESSION: 1. Subtle lower lung interstitial thickening. This is likely within normal limits although mild pulmonary edema or an infectious process cannot be excluded. No consolidation identified. 2. Suspected trace right pleural effusion. ACT 112: Negative or not required by law. Electronically signed by: Bryan Khan M.D. 10/13/2023 10:50 AM Abdomen/Pelvis CT 10/13/23 11:46 CT abd pelvis wo con CLINICAL HISTORY: ab pain, bloody stools, on eliquis, h/o UC TECHNIQUE: Helical axial images of the abdomen and pelvis were obtained. Automated dose lowering techniques and/or adjustment according to patient size were utilized for this exam. This exam was performed without intravenous contrast. CT DOSE: 1535.32 mGy.cm COMPARISON: Comparison is made to CT abdomen pelvis 11/08/2012 FINDINGS: Lower chest: Interstitial thickening and bilateral trace pleural effusions are seen, this may be seen in pulmonary edema. Liver: Unremarkable. No focal lesions are seen. Gallbladder and biliary tree: Cholelithiasis is seen without evidence of cholecystitis. No intra- or extrahepatic biliary ductal dilation. Pancreas: There is a solid-appearing mass in the pancreatic tail measuring 31 mm. 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 Spleen: Unremarkable. Adrenals: Unremarkable. Kidneys and ureters: A lateral hydronephrosis and hydroureter are seen. No obstructive stones. Bladder: Diffuse homogeneous wall thickening is seen. Reproductive organs: Prostatomegaly is seen. Bowel: Diverticulosis is seen without diverticulitis. The appendix is normal. There is a small hiatal hernia. Lymph nodes Retroperitoneal: Unremarkable. Pelvic: Unremarkable. Mesenteric: Unremarkable. Peritoneum: Fat stranding is seen. Vessels: Atherosclerotic calcifications are seen. Abdominal wall: A fat-containing umbilical hernia is seen. Bones: Degenerative changes in the visualized spine. IMPRESSION: 1. No acute abnormalities are seen. There is diverticulosis without diverticulitis. 2. Prostatomegaly with chronic bladder outlet obstruction with resultant hydronephrosis and hydroureter. 3. Cholelithiasis without cholecystitis. ACT 112: Negative or not required by law. Electronically signed by: Wali Johnson M.D. 10/13/2023 12:22 PM Discharge Plan Visit Data Chief Complaint: Chest Pain Stated Complaint: CHEST DISCOMFORT, BLOATING,COUGH ED Provider: Santos Vazquez Discharge Problem: SEGUN (acute kidney injury), BPH (benign prostatic hyperplasia), Volume overload, Urinary retention, Pulmonary edema, PAF (paroxysmal atrial fibrillation) Patient Disposition: Admitted As Inpatient Discharge Instructions Interventions: ED Discharge Assessment Last Done: 10/13/23 16:54 Discharge Problem: BPH (benign prostatic hyperplasia) Qualifiers: Lower urinary tract symptom presence: symptoms present Lower urinary tract symptom detail: unspecified Qualified Code(s): N40.1 - Benign prostatic hyperplasia with lower urinary tract symptoms Volume overload Qualifiers: Hypervolemia type: other Qualified Code(s): E87.79 - Other fluid overload Pulmonary edema Qualifiers: Chronicity: acute Qualified Code(s): J81.0 - Acute pulmonary edema
--- NOTE | 2023-10-13 10:52 | XRay Report ---
XR chest 1V not portable CLINICAL HISTORY: Chest pain, nonspecific COMPARISON STUDY: No previous studies for comparison. FINDINGS: There is no pneumothorax. Possible trace right pleural effusion. Mild lower lung interstiti al thickening is present. There is mild cardiomegaly. No consolidation is identified. IMPRESSION: 1. Subtle lower lung interstitial thickening. This is likely within normal limits although mild pulmo nary edema or an infectious process cannot be excluded. No consolidation identified. 2. Suspected trace right pleural effusion. ACT 112: Negative or not required by law. Electronically signed by: Bryan Khan M.D. 10/13/2023 10:50 AM
--- NOTE | 2023-10-13 12:23 | CT Scan Report ---
CT abd pelvis wo con CLINICAL HISTORY: ab pain, bloody stools, on eliquis, h/o UC TECHNIQUE: Helical axial images of the abdomen and pelvis were obtained. Automated dose lowering tech niques and/or adjustment according to patient size were utilized for this exam. This exam was perfor med without intravenous contrast. CT DOSE: 1535.32 mGy.cm COMPARISON: Comparison is made to CT abdomen pelvis 11/08/2012 FINDINGS: Lower chest: Interstitial thickening and bilateral trace pleural effusions are seen, this may be see n in pulmonary edema. Liver: Unremarkable. No focal lesions are seen. Gallbladder and biliary tree: Cholelithiasis is seen without evidence of cholecystitis. No intra- or extrahepatic biliary ductal dilation. Pancreas: There is a solid-appearing mass in the pancreatic tail measuring 31 mm. 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 Spleen: Unremarkable. Adrenals: Unremarkable. Kidneys and ureters: A lateral hydronephrosis and hydroureter are seen. No obstructive stones. Bladder: Diffuse homogeneous wall thickening is seen. Reproductive organs: Prostatomegaly is seen. Bowel: Diverticulosis is seen without diverticulitis. The appendix is normal. There is a small hiatal hernia. Lymph nodes Retroperitoneal: Unremarkable. Pelvic: Unremarkable. Mesenteric: Unremarkable. Peritoneum: Fat stranding is seen. Vessels: Atherosclerotic calcifications are seen. Abdominal wall: A fat-containing umbilical hernia is seen. Bones: Degenerative changes in the visualized spine. IMPRESSION: 1. No acute abnormalities are seen. There is diverticulosis without diverticulitis. 2. Prostatomegaly with chronic bladder outlet obstruction with resultant hydronephrosis and hydroure ter. 3. Cholelithiasis without cholecystitis. ACT 112: Negative or not required by law. Electronically signed by: Wali Johnson M.D. 10/13/2023 12:22 PM
[2023-10-13 12:38] LABS: Troponin I High Sensitivity 8.2 pg/ml (0-20)
[2023-10-13] MEDS ORDERED: FUROSEMIDE 40 MG/4 ML VIAL IV ONE (12:56)
--- NOTE | 2023-10-13 13:14 | History & Physical Report ---
Date of Service October 13, 2023 Assessment & Plan (1) Urinary retention: Plan: -Admit to med/tele -Currently hemodynamically stable and stable on RA -Presented to the ED with multiple complaints including volume overload, non- productive cough, and chest pain running across the mid-chest -At this time the primary etiology of his volume overload appears to be a urinary obstruction due to BPH -CT of the abd/pelvis wo con shows signs consistent with urine retention due to his known BPH -Given 40 mg IV lasix prior to admission -Campos catheter placed on admission with approximately 2300 cc urine output -Continue campos cath for now -Continue 40 mg IV lasix daily to avoid over diuresis when his kidney function improves -Will start QHS flomax tonight -Would recommend campos removal and voiding trial prior to DC -Home Eliquis for DVT PPX -HH diet with 2gm sodium restriction and 1800 mL restriction -AM CBC, BMP, mag, PT/INR (2) Volume overload: Plan: -He does have an elevated BNP, JVD, and signs of mild pulmonary edema which could be associated with CHF, however, unsure if this is mainly due to volume overload which started from his urinary obstruction -S/P 40 mg IV lasix in the ED -Campos cath placed on admission, monitor I's & O's closely moving forward -Will continue with 40 mg IV lasix daily for now, monitor renal function -Will obtain TTE for further evaluation (3) SEGUN (acute kidney injury): Plan: -Cr is 1.8 today, baseline is near 1.0 -Likely due to his bladder outlet obstruction with significant urinary retention -Campos catheter placed at the time of admission with 2300 mL of urine production -Denies recent nsaid or significant alcohol use -Will obtain UA with protein:Cr ratio for further evaluation -Hold lisinopril for now -Avoid nephrotxic agents -Monitor daily renal function (4) Chest pain: Plan: -Patient has been experiencing 5/10 chest pain/pressure across the BL mid chest since approximately 0430 this am -Patient was lying flat when pain started -He has had two negative high sen trop levels with ECG in NSR and without acute ST segment or T-wave changes -Likely due to mild pulm edema noted on CXR today from volume overload -Continue IV diuresis, campos cath placed -Monitor on tele and will follow TTE ordered on admission (5) Leukocytosis: Plan: -Patient noted to have a leukocytosis of 14 with neutrophile predominance of 11 -Has been afebrile -Mild non-productive cough but otherwise has been without infectious symptoms -CXR notes possible lower lung interstitial thickening -Ct of the abd/pelvis is negative for acute infectious findings -Will follow UA obtained on admission and add on procal -Will hold abx for now as this could be due to his volume overload and SEGUN -Monitor daily CBC (6) Feces bloodstained: Plan: -Patient noted one episode of blood streaked feces this am -Has a hx of UC and is on BID Mesalamine -Also noted to have a hx of hemorrhoids -CT of the abd/pelvis wo con was negative for acute GI findings -Denies sherrell blood per rectum at this time -HGB and BP are stable -For now will continue Eliquis and Aspirin -Monitor for recurrence (7) PAF (paroxysmal atrial fibrillation): Plan: -Recent diagnosis earlier this week on ECG at PCP's office -Saw Dr. Retana yesterday and was started on Eliquis with increase in metoprolol dosing -In NSR today -Will continue Eliquis and metoprolol for now (8) Hypertension: Plan: -Stable -Hold Lisinopril with SEGUN (9) CAD (coronary artery disease): Plan: -S/P stent placement x 1 at [facility] approximately 17 years ago -Cardiac workup in the ED is unremarkable besides elevated BNP -Conitnue Aspirin, Elqiuis, and statin -Follow TTE ordered on admission (10) Ulcerative colitis: Plan: -Continue BID mesalamine Plan The patient was discussed with Dr. Bravo at the time of the exam History of Present Illness Chief Complaint: Cough, chest pain, orthopnea Primary Care Provider: Ivy George MD Chava Vidales is a 73 year old male with a PMH significant for hypertension, Ulcerative Colitis (On Mesalamine) hypercholesterolemia, paroxysmal atrial fibrillation (on Eliquis), and coronary artery disease (IMI, LCx IRA x2, 2005), BPH who presented to the [facility] ED on 10/12/23 with complaints of cough, chest pain, and orthopnea. He remained stable in the ED. Labs were significant for a leukocytosis of 14 with neutrophil predominance of 11, stable hgb, Cr of 1.83 (baseline is near 1.0), BUN of 44, two negative high sen troponins, BNP of 644 (no previous in our system). Chest xray was read as "1. Subtle lower lung interstitial thickening. This is likely within normal limits although mild pulmonary edema or an infectious process cannot be excluded. No consolidation identified. 2. Suspected trace right pleural effusion.". CT of the abd/pelvis wo con was read as "1. Subtle lower lung interstitial thickening. This is likely within normal limits although mild pulmonary edema or an infectious process cannot be excluded. No consolidation identified. 2. Suspected trace right pleural effusion.". Prior to admission the patient was given 40 mg IV lasix. At the time of the exam the patient was sitting in bed in no acute distress with his sittings bedside, history was obtained from both. The patient was seen by his PCP earlier this week and was found to be in new onset, rate controlled, afib. He was seen by Dr. Retana in the Cardiology clinic and was started on Eliquis, had his dose of metoprolol increased from 25 daily to 25 mg BID, and was continued on a baby aspirin. Over the past week he has been feeling as though he is getting more volume overloaded, especially in his abdomen. He has developed a non-productive cough and experienced chest pressure this am while lying flat. He states that the pain occurred shortly after waking. He got and and sat in his recliner and the pain continued but did not increase. He is still experiencing the chest discomfort at this time and denies radiation of the pain. This am he noticed some streaks of blood in his stool but denies sherrell blood. He did take all of his am medications, except his am dose of Mesalamine. He worked in [employer] for 15+ years and was diagnosed with black lung. He denies frequent use of NSAIDs, quite tobacco use approximately 17 years ago after his CA, and drinks socially on weekends. He is a full code and would want his to make medical decisions for him if he cannot make them himself. Please refer to Dr. Bravo's attestation for any changes to the treatment plan. Allergies Allergy/AdvReac Type Severity Reaction Status Date / Time aspirin Allergy Hives Verified 10/14/23 09:12 Home Medications Medication Instructions Recorded Confirmed Type cinnamon bark 1,000 mg PO BID 02/26/20 10/13/23 History garlic 1,000 mg capsule 1,000 mg PO DAILY 02/26/20 10/13/23 History multivitamin (Daily Multi-Vitamin 1 tab PO DAILY 02/26/20 10/13/23 History tablet) atorvastatin 40 mg tablet 40 mg PO DAILY #90 tabs 07/08/22 10/13/23 Rx lisinopril 2.5 mg tablet 2.5 mg PO DAILY #90 tabs 07/08/22 10/13/23 Rx psyllium husk [Daily Fiber] PO QID 01/18/23 10/04/23 History nitroglycerin 0.4 mg sublingual 0.4 mg sublingual Q5M PRN chest 10/04/23 10/13/23 Rx tablet pain #20 tabs apixaban 5 mg tablet (Eliquis) 5 mg PO BID #180 tabs 10/12/23 10/13/23 Rx metoprolol succinate 50 mg 25 mg PO BID 10/12/23 10/13/23 History tablet,extended release 24 hr aspirin 81 mg tablet,delayed 81 mg PO DAILY 10/13/23 10/13/23 History release mesalamine 1.2 gram tablet,delayed 2.4 g PO DAILY 10/13/23 10/13/23 History release Past Med/Surg History Medical History Allergy status to unspecified drugs, medicaments and biological substances Aspirin allergy BPH (benign prostatic hyperplasia) Elevated prostate specific antigen (PSA) Shoulder pain with history of repair of rotator cuff Family History Mother Colorectal cancer Father Heart disease Social History Smoking Status: Former smoker Hx Alcohol Use: Yes Hx Substance Use: No Preferred Language: Faroese Payloader Operator Required: No Beliefs That Will Affect Care: None marital status: Single Current Living Situation: Significant Other current occupational status: employed 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 [employer] How many Children do You have: 2 Feels Safe at Home: Yes Physical Exam Physical Exam: Physical Exam: General: In no acute distress, stated age, well-nourished, non-toxic appearing HEENT: Normocephalic, atraumatic, no scleral icterus, pupils around round, symmetrical, and reactive to light, +JVD, moist mucus membranes, trachea midline, no thyromegaly Chest/Pulm: No respiratory distress, symmetrical chest expansion, scattered expiratory wheezing with crackles noted in the BL lower lung smith Cardiac: RRR, no murmurs noted Abdomen: Mild abdominal distention, normoactive bowel sounds, soft, non- tender to palpation throughout : Negative CVA tenderness BL Musculoskeletal: Symmetrical and without signs of acute trauma, upper and lower extremities with full ROM, no atrophy, spasticity, or flaccidity Extremities: Radial, dorsalis pedis, and posterior tibial pulses are intact and symmetrical, trace edema noted in the BL LE's Skin: Warm, dry, no rashes , lesions, or scars noted Neuro: Alert and oriented to person, place, month, year, and president, no focal defects, no tremors noted Psych: No acute distress, calm and cooperative during the exam Results & Data Results & Data Vital Signs (Past 12 Hours) Vital Signs Temp Pulse Pulse Resp BP BP Pulse Ox 10/13/23 12:20 72 10/13/23 11:49 72 20 96 10/13/23 11:49 96 10/13/23 11:49 72 20 153/91 H 97 10/13/23 09:35 36.5 C 69 20 153/87 H 97 O2 Del Method 10/13/23 12:20 10/13/23 11:49 Room Air 10/13/23 11:49 Room Air 10/13/23 11:49 Room Air 10/13/23 09:35 Room Air Laboratory Results Abnormal lab results 10/13/23 10/13/23 Range/Units 09:53 11:57 WBC 14.32 H (4.8-10.8) K/ul RBC 4.64 L (4.70-6.10) M/uL Hgb 12.6 L (14.0-18.0) g/dl Hct 38.4 L (42.0-52.0) % RDW Coeff of Zak 15.2 H (11.5-14.5) % Neut # (Auto) 11.41 H (1.40-6.50) K/uL Cook # (Auto) 1.30 H (0.11-0.59) K/uL PT 12.3 H (9.0-12.0) Seconds APTT 32 H (21-31) Seconds Chloride 109 H (98-107) mmol/L BUN 44 H (6-23) mg/dl Creatinine 1.83 H (0.6-1.4) mg/dl BUN/Creatinine Ratio 24.0 H (10-20) Glucose 126 H (70-99(Fasting)) mg/dl B-Natriuretic Peptide 644 H (0-100) pg/ml Diagnostic Findings Chest X-Ray 10/13/23 09:39 XR chest 1V not portable CLINICAL HISTORY: Chest pain, nonspecific COMPARISON STUDY: No previous studies for comparison. FINDINGS: There is no pneumothorax. Possible trace right pleural effusion. Mild lower lung interstitial thickening is present. There is mild cardiomegaly. No consolidation is identified. IMPRESSION: 1. Subtle lower lung interstitial thickening. This is likely within normal limits although mild pulmonary edema or an infectious process cannot be excluded. No consolidation identified. 2. Suspected trace right pleural effusion. ACT 112: Negative or not required by law. Electronically signed by: Bryan Khan M.D. 10/13/2023 10:50 AM Abdomen/Pelvis CT 10/13/23 11:46 CT abd pelvis wo con CLINICAL HISTORY: ab pain, bloody stools, on eliquis, h/o UC TECHNIQUE: Helical axial images of the abdomen and pelvis were obtained. Automated dose lowering techniques and/or adjustment according to patient size were utilized for this exam. This exam was performed without intravenous contrast. CT DOSE: 1535.32 mGy.cm COMPARISON: Comparison is made to CT abdomen pelvis 11/08/2012 FINDINGS: Lower chest: Interstitial thickening and bilateral trace pleural effusions are seen, this may be seen in pulmonary edema. Liver: Unremarkable. No focal lesions are seen. Gallbladder and biliary tree: Cholelithiasis is seen without evidence of cholecystitis. No intra- or extrahepatic biliary ductal dilation. Pancreas: There is a solid-appearing mass in the pancreatic tail measuring 31 mm. 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 Spleen: Unremarkable. Adrenals: Unremarkable. Kidneys and ureters: A lateral hydronephrosis and hydroureter are seen. No obstructive stones. Bladder: Diffuse homogeneous wall thickening is seen. Reproductive organs: Prostatomegaly is seen. Bowel: Diverticulosis is seen without diverticulitis. The appendix is normal. There is a small hiatal hernia. Lymph nodes Retroperitoneal: Unremarkable. Pelvic: Unremarkable. Mesenteric: Unremarkable. Peritoneum: Fat stranding is seen. Vessels: Atherosclerotic calcifications are seen. Abdominal wall: A fat-containing umbilical hernia is seen. Bones: Degenerative changes in the visualized spine. IMPRESSION: 1. No acute abnormalities are seen. There is diverticulosis without diverticulitis. 2. Prostatomegaly with chronic bladder outlet obstruction with resultant hydronephrosis and hydroureter. 3. Cholelithiasis without cholecystitis. ACT 112: Negative or not required by law. Electronically signed by: Wali Johnson M.D. 10/13/2023 12:22 PM ECG Additional Comments: Sinus rhythm with occasional Premature ventricular complexes Otherwise normal ECG When compared with ECG of 12-OCT-2023 12:48, (unconfirmed) Premature ventricular complexes are now Present Nonspecific T wave abnormality no longer evident in Inferior leads Code Status & VTE Plan Code Status FUll code VTE Prophylaxis Plan VTE Prophylaxis will be ordered: Yes Supervising Physician Co-Signing Physician Notes I personally saw and examined the patient. I verified all massey points and agree with Jeromy Ponce PA-C with the following exceptions and/or additions: 73-year-old male presents to the ER with abdominal distention, chest pressure especially when lying flat and streaks of blood in his stool. Noted to be in SEGUN with urine retention on CT in the ER. O/E HS RRR, no murmurs, Chest bibasal crackles, Abdo soft (previously distended prior to campos catheter), Pedal edema 1+ b/l equal A/P Acute urinary retention - suspect acute on chronic and now to the point where it is causing SEGUN with fluid retention. Secondary to BPH. Start tamsulosin 0.4 mg HS. Follow-up with urology as an outpatient. Hypervolemia - suspect mainly due to urine retention as above. Creatinine should improve now Campos catheter in place. Lasix 40 mg IV to get him back to a euvolemic state however once his renal function improves he runs the risk of overdiuresis and likely does not need Lasix on discharge. TTE to assess for cardiomyopathy component. No known liver dysfunction. SEGUN - obstructive uropathy due to BPH. Should continue to improve now Campos catheter in place. UA with no proteinuria. Atrial fibrillation - continue Eliquis PG Care Time/CCT Total # of Minutes Spent Total Time Spent with Patient: Total time spent is greater than 50% in coordination of care (as documented) at patient's floor/unit and/or counseling patient: Coding [place] [address] INT INP/OBS CARE 3/75MIN Patient Type Established Medical Decision Making High Complexity Diagnoses Urinary retention R33.9 Volume overload E87.70 SEGUN (acute kidney injury) N17.9 Chest pain R07.9 Leukocytosis D72.829 Feces bloodstained K92.1 PAF (paroxysmal atrial fibrillation) I48.0 Hypertension I10 CAD (coronary artery disease) I25.10 Ulcerative colitis K51.90
[2023-10-13 14:04] LABS: Appearance Urine Clear (Clear); Bacteria Urine Automated Negative (Negative); Bilirubin Urine Negative (Negative); Blood Urine 1+ (Negative); Cast Urine Automated 0 /lpf (0-5); Color Urine Yellow; Epithelial Cell Urine Auto 0-5 /lpf (0-5); Glucose Urine UA Negative (Negative); Ketones Urine Negative (Negative); Leukocyte Esterase Urine Negative (Negative); Nitrite Urine Negative (Negative); Protein Urine Negative (Negative); RBC Urine Automated 0-4 /hpf (0-4); Specific Gravity Urine 1.009 (1.000-1.030); Urobilinogen Urine Negative (Negative); pH Urine 5.5 (4.5-7.5)
[2023-10-13 14:21] LABS: Creatinine Urine Random 35.6 mg/dl; Total Protein Urine Random < 4.0 mg/dl (0-11.9)
[2023-10-13] MEDS: ALBUTEROL 0.5% NEB SOLN 2.5 MG/0.5 ML VIAL NEB SCH (19:29)
--- NOTE | 2023-10-13 19:59 | Electrocardiogram Report ---
Test Reason : Blood Pressure : / mmHG Vent. Rate : 070 BPM Atrial Rate : 070 BPM P-R Int : 160 ms QRS Dur : 092 ms QT Int : 388 ms P-R-T Axes : 036 034 053 degrees QTc Int : 419 ms Sinus rhythm with occasional Premature ventricular complexes Otherwise normal ECG When compared with ECG of 12-OCT-2023 12:48, (unconfirmed) Premature ventricular complexes are now Present Nonspecific T wave abnormality no longer evident in Inferior leads Confirmed by Lazaro Pascual ([id number]) on 10/13/2023 7:58:32 PM Referred By: Confirmed By:Issa Pascual
[2023-10-13] MEDS: APIXABAN 5 MG TABLET PO SCH (21:09)
[2023-10-13] MEDS: TAMSULOSIN HCL 0.4 MG CAP PO SCH (21:09)
[2023-10-13] MEDS: METOPROLOL SUCC 25MG EXT REL TAB PO SCH (21:29)
[2023-10-14] MEDS: ALBUTEROL 0.5% NEB SOLN 2.5 MG/0.5 ML VIAL NEB SCH ×4 (01:21→19:34)
[2023-10-14 06:45] LABS: Basophils # (auto) 0.03 K/uL (0.00-0.20); Basophils % (auto) 0.2 %; Eosinophils # (auto) 0.04 K/uL (0.00-0.50); Eosinophils % (auto) 0.3 %; Hematocrit (blood only) 36.6 % (42.0-52.0); Hemoglobin 12.2 g/dl (14.0-18.0); Immature Granulocytes # (auto) 0.06 K/uL (0.01-0.20); Immature Granulocytes % (auto) 0.4 %; Lymphocytes # (auto) 1.54 K/uL (1.20-3.40); Lymphocytes % (auto) 11.2 %; Mean Corpuscular Hgb Conc 33.3 g/dL (32.0-36.0); Mean Platelet Volume 12.4 fL (9.4-12.4); Monocytes # (auto) 1.57 K/uL (0.11-0.59); Monocytes % (auto) 11.4 %; Neutrophils # (auto) 10.55 K/uL (1.40-6.50); Neutrophils % (auto) 76.5 %; Platelet Count 155 K/uL (130-400); Red Blood Count 4.52 M/uL (4.70-6.10); White Blood Count 13.79 K/ul (4.8-10.8)
[2023-10-14 07:27] LABS: BUN Creatinine Ratio 20.5 (10-20); Creatinine Clr Calc Pharmacy 49.7 ml/min; Est GFR (African American) 46.7 ml/min; Est GFR (Non-African American) 40.3 ml/min; Magnesium 1.8 mg/dl (1.7-2.4); Potassium 3.3 mmol/L (3.5-5.1)
[2023-10-14 07:35] LABS: INR 1.2 (0.9-1.1); Prothrombin Time 13.2 Seconds (9.0-12.0)
[2023-10-14] MEDS ORDERED: FUROSEMIDE 40 MG/4 ML VIAL IV SCH (09:00)
[2023-10-14] MEDS ORDERED: POTASSIUM CHLORIDE CRTAB 20 MEQ TABCR PO STA ×2 (09:10→19:38)
[2023-10-14] MEDS: APIXABAN 5 MG TABLET PO SCH ×2 (09:28→21:56)
[2023-10-14] MEDS: ATORVASTATIN 40 MG TAB PO SCH (09:28)
[2023-10-14] MEDS: METOPROLOL SUCC 25MG EXT REL TAB PO SCH (09:28)
[2023-10-14] MEDS: ASPIRIN 81 MG ECTAB PO SCH (09:28)
--- NOTE | 2023-10-14 11:08 | XCELERA ---
[id number]
--- NOTE | 2023-10-14 11:26 | Hospitalist Progress Note ---
Date of Service October 14, 2023 Assessment & Plan (1) Urinary retention: Plan: -At this time the primary etiology of his volume overload appears to be a urinary obstruction due to BPH -CT of the abd/pelvis wo con shows signs consistent with urine retention due to known BPH -Cook catheter placed on admission with approximately 2300 cc urine output -Continue Cook catheter for now -Continue Flomax, anticipate he will need this on discharge -Urology consulted, awaiting recommendations (2) Volume overload: Plan: -On admission, had an elevated BNP, JVD, and signs of mild pulmonary edema which could be associated with CHF, however, unsure if this is mainly due to volume overload which started from his urinary obstruction -S/P 40 mg IV lasix in the ED -Cook catheter placed on admission, monitor I's & O's closely moving forward -Improved volume status with catheter placement, 7L output- now euvolemic -TTE unremarkable -Discontinue Lasix (3) PAF (paroxysmal atrial fibrillation): Plan: -Recent diagnosis earlier this week on ECG at PCP's office -Saw Dr. Retana 10/12 and was started on Eliquis with increase in metoprolol dosing -NSR on admission, now in AF, not rate-controlled with HR in 120s -Consider increasing dose of metoprolol further -Telemetry monitoring -Continue Eliquis for now (4) Hematuria: Plan: -Noted hematuria today in Cook -Hgb stable at 12.2 -Likely secondary to Eliquis -We will continue Eliquis for now for stroke risk reduction from AF -Urology consult pending as above -Monitor CBC (5) SEGUN (acute kidney injury): Plan: -Cr is 1.86 on admission, baseline is near 1.0 -Likely due to his bladder outlet obstruction with significant urinary retention- postrenal azotemia -Cook catheter placed at the time of admission with 2300 mL of urine production -Hold lisinopril -Cr improving to 1.66 today -Monitor BMP (6) Chest pain: Plan: -Chest pain on admission has resolved -Negative troponin x2, normal EKG in ER -Was likely due to volume overload leading to pulmonary edema -TTE unremarkable (7) Leukocytosis: Plan: -Patient noted to have a leukocytosis of 14 with neutrophile predominance of 11 -Has been afebrile -CXR notes possible lower lung interstitial thickening -Ct of the abd/pelvis is negative for acute infectious findings -Does not appear to have infectious process, leukocytosis is likely stress demargination and improving today -Monitor CBC (8) Feces bloodstained: Plan: -Patient noted one episode of blood streaked feces prior to admission -CT of the abd/pelvis wo con was negative for acute GI findings -Denies sherrell blood per rectum at this time -HGB and BP are stable -For now will continue Eliquis and aspirin -Monitor for recurrence (9) Hypertension: Plan: -Stable -Hold Lisinopril with SEGUN (10) CAD (coronary artery disease): Plan: -S/P stent placement x 1 at [facility] approximately 17 years ago -Cardiac workup in the ED is unremarkable besides elevated BNP -Continue aspirin, Elqiuis, and statin -TTE unremarkable (11) Ulcerative colitis: Plan: -Continue BID mesalamine -No acute flare at present Admission and Anticipated Discharge Date Admission Date: October 13, 2023 Supervising Physician Co-Signing Physician Notes ATTESTATION I also saw the patient and confirmed massey portions of the history and exam. I agree with the impression and plan in the resident documentation, and as summarized below. Upon our midmorning exam, seated at the edge of the bed. is at bedside. He feels quite well. No complaints this morning. Cook is draining blood colored urine. EXAM 94/61, 84, 18, 37.4, 94% on room air Heart is irregularly irregular, auscultated rate mid 90s Respirations nonlabored Abdomen soft and nontender DATA Labs White blood cell count 13.79, hemoglobin 12.2 Creatinine trending down, 1.83-1.66 IMPRESSION & PLAN Acute urinary tension secondary to bladder outlet obstruction Acute renal failure secondary to above Atrial fibrillation Hematuria Urology consultation pending Will keep an eye on his rates; with the diuresis post Cook, I think his volume status has improved as has the cardiac stress; hoping his rates will trend down Monitor CBC; will continue anticoagulation now as benefit outweighs risk Additional per resident documentation Subjective Acute events overnight- none. Pt examined at bedside. Feels much better after catheter placement, reports resolution of abdominal and chest pain. Cook noted to be draining blood-tinged urine. Denies other acute complaints. Review of Systems Review of Systems: Per HPI/Subjective Physical Exam Physical Exam: Physical Exam: General: In no acute distress, stated age, well-nourished, non-toxic appearing HEENT: Normocephalic, atraumatic, no scleral icterus, no JVD, moist mucus membranes, trachea midline Chest/Pulm: No respiratory distress, symmetrical chest expansion, CTAB Cardiac: Irregular rhythm, tachycardic,, no murmurs noted Abdomen: No abdominal distention, normoactive bowel sounds, soft, non-tender to palpation throughout : Negative CVA tenderness BL. Cook draining blood-tinged urine Extremities: no peripheral edema noted b/l LE Skin: Warm, dry, no rashes , lesions, or scars noted Results & Data Results & Data Vital Signs (Past 12 Hours) Vital Signs Temp Pulse Pulse Resp BP Pulse Ox O2 Del Method 10/14/23 08:10 36.7 C 123 H 18 117/70 96 Room Air 10/14/23 07:47 92 H 10/14/23 07:35 36.8 C 76 18 164/83 H 95 Room Air 10/14/23 06:15 79 18 91 Room Air 10/14/23 04:03 37 C 67 18 102/60 91 Room Air 10/14/23 00:58 103 H Resident Activity Tracking Resident Involvement: Resident Care Provided Care Provided: Adult Hospital Medicine
--- NOTE | 2023-10-14 13:14 | Urology Consultation ---
Date of Consultation October 14, 2023 Assessment & Plan (1) Urinary retention: (2) SEGUN (acute kidney injury): (3) Benign localized prostatic hyperplasia with lower urinary tract symptoms (LUTS): Plan 73yo M with a hx of BPH admitted with acute urinary retention, SEGUN, and volume overload. Urology consulted for urinary retention. CT abdomen pelvis imaging demonstrated prostatomegaly with chronic bladder outlet obstruction with resultant hydronephrosis and hydroureter, no obstructive stones seen, bladder wall thickening noted. A Cook catheter was placed on admission with approximately 2300 cc of urine output. Subjectively feeling much better today following catheter placement. He is afebrile, mildly tachycardic, BP 98/58. Labs reviewed -WBC 14.3213.79 today, creatinine downtrending 1.831.66. Continue to trend. Urinalysis on arrival with blood, otherwise negative. Cook draining appropriatelyurine is pink-tinged. Hematuria began after catheter placement may be due to catheter insertion/irritation and/or rapid decompression of the bladder. Recommend maintaining Cook catheter for maximum decompression and bladder rest for at least 7-10 days. Recommend begin max medical therapy for prostate with tamsulosin and finasteride. We discussed outpatient cystoscopy for further evaluation of the bladder and prostate, he was agreeable. Will arrange outpatient follow-up with our service. Urology will follow peripherally. Please call with any further question s/concerns. History of Present Illness Attending Physician: Taran Mcfarlane DO History of Present Illness 73 year old male with a PMH significant for hypertension, Ulcerative Colitis, hypercholesterolemia, paroxysmal atrial fibrillation (on Eliquis), coronary artery disease, and BPH who presented to the [facility] ED on 10/12/23 with complaints of cough, chest pain, and orthopnea. On arrival he was afebrile and hemodynamically stable. Labs were significant for a leukocytosis of 14 and Cr of 1.83 (baseline is near 1.0). Urinalysis with 1+ blood, negative nitrite, negative LE, negative bacteria. CT abdomen pelvis imaging obtained and notable for prostatomegaly with chronic bladder outlet obstruction with resultant hydronephrosis and hydroureter, no obstructive stones seen, bladder wall thickening noted. A Cook catheter was placed on admission with approximately 2300 cc of urine output. He was started on Flomax. Admitted to medicine service for urinary retention and volume overload. Urology consulted for urinary retention. Patient is well-known to the urology office, follows with Dr. Mittal. History of BPH and elevated PSA. Patient was examined at bedside this morning. at bedside. No acute distress. Overall feeling much better since catheter placement. Denies fever, chills, nausea, vomiting. Denies any pain or discomfort at present. Cook intact and draining pink-tinged urine. Patient reports worsening urinary symptoms and issues over the past few weeks. Has noticed increased urgency, frequency, and dribbling. He was not previously on any urinary medications Allergies Allergy/AdvReac Type Severity Reaction Status Date / Time aspirin Allergy Hives Verified 10/14/23 09:12 Home Medications Medication Instructions Recorded Confirmed Type cinnamon bark 1,000 mg PO BID 02/26/20 10/13/23 History garlic 1,000 mg capsule 1,000 mg PO DAILY 02/26/20 10/13/23 History multivitamin (Daily Multi-Vitamin 1 tab PO DAILY 02/26/20 10/13/23 History tablet) atorvastatin 40 mg tablet 40 mg PO DAILY #90 tabs 07/08/22 10/13/23 Rx lisinopril 2.5 mg tablet 2.5 mg PO DAILY #90 tabs 07/08/22 10/13/23 Rx psyllium husk [Daily Fiber] PO QID 01/18/23 10/04/23 History nitroglycerin 0.4 mg sublingual 0.4 mg sublingual Q5M PRN chest 10/04/23 10/13/23 Rx tablet pain #20 tabs apixaban 5 mg tablet (Eliquis) 5 mg PO BID #180 tabs 10/12/23 10/13/23 Rx metoprolol succinate 50 mg 25 mg PO BID 10/12/23 10/13/23 History tablet,extended release 24 hr aspirin 81 mg tablet,delayed 81 mg PO DAILY 10/13/23 10/13/23 History release mesalamine 1.2 gram tablet,delayed 2.4 g PO DAILY 10/13/23 10/13/23 History release Patient History Medical History Allergy status to unspecified drugs, medicaments and biological substances Aspirin allergy BPH (benign prostatic hyperplasia) Elevated prostate specific antigen (PSA) Shoulder pain with history of repair of rotator cuff Family History Mother Colorectal cancer Father Heart disease Social History Smoking Status: Former smoker Hx Alcohol Use: Yes Hx Substance Use: No Preferred Language: Bengali Communication Ability: Effective Setter Up Required: No Beliefs That Will Affect Care: None marital status: Single Current Living Situation: Significant Other current occupational status: employed 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 [employer] How many Children do You have: 2 Feels Safe at Home: Yes Assistive Devices: Wheelchair Review of Systems Review of Systems: All systems reviewed & are unremarkable except as noted in HPI & below Physical Exam Constitutional: well developed and well nourished; no acute distress Respiratory: normal respiratory effort; no respiratory distress and no labored breathing Musculoskeletal: Head/Neck/Chest: normocephalic Skin: No visible rashes or lesions to exposed skin areas Neurologic: moves all extremities and awake Psychiatric: A+Ox3, euthymic affect Genitourinary: Cook intact, draining pink-tinged urine. Results & Data Vital Signs (Past 12 Hours) Vital Signs Temp Pulse Pulse Resp BP Pulse Ox O2 Del Method 10/14/23 12:32 98/58 L 10/14/23 11:28 36.9 C 97 H 18 92/61 L 96 Room Air 10/14/23 08:10 36.7 C 123 H 18 117/70 96 Room Air 10/14/23 07:47 92 H 10/14/23 07:35 36.8 C 76 18 164/83 H 95 Room Air 10/14/23 06:15 79 18 91 Room Air 10/14/23 04:03 37 C 67 18 102/60 91 Room Air PG Care Time/CCT Total # of Minutes Spent Total Time Spent with Patient: Total time spent is greater than 50% in coordination of care (as documented) at patient's floor/unit and/or counseling patient: Coding Level of Care Code 66812 INT INP/OBS CARE 2/55MIN Diagnoses Urinary retention R33.9 SEGUN (acute kidney injury) N17.9 Benign localized prostatic hyperplasia with lower urinary tract symptoms (LUTS) N40.1
[2023-10-14] MEDS ORDERED: LACTATED RINGER'S 500 ML IV ONE (19:41)
[2023-10-14] MEDS: MAGNESIUM SULFATE / D5W 1 GM/100 ML BAG IV SCH ×2 (19:55→21:50)
[2023-10-14] MEDS ORDERED: METOPROLOL SUCC 50MG EXT REL TAB PO SCH (21:45)
[2023-10-14] MEDS: TAMSULOSIN HCL 0.4 MG CAP PO SCH (21:56)
[2023-10-15 00:19] LABS: Basophils # (auto) 0.04 K/uL (0.00-0.20); Basophils % (auto) 0.3 %; Eosinophils # (auto) 0.29 K/uL (0.00-0.50); Hematocrit (blood only) 38.5 % (42.0-52.0); Hemoglobin 12.7 g/dl (14.0-18.0); Immature Granulocytes # (auto) 0.05 K/uL (0.01-0.20); Immature Granulocytes % (auto) 0.3 %; Lymphocytes # (auto) 2.31 K/uL (1.20-3.40); Lymphocytes % (auto) 16.1 %; Mean Corpuscular Hemoglobin 26.8 pg (25.0-34.0); Mean Corpuscular Volume 81.2 fL (80.0-100.0); Mean Platelet Volume 11.7 fL (9.4-12.4); Monocytes # (auto) 1.68 K/uL (0.11-0.59); Monocytes % (auto) 11.7 %; Neutrophils # (auto) 9.94 K/uL (1.40-6.50); Neutrophils % (auto) 69.6 %; Platelet Count 169 K/uL (130-400); RDW Coefficient of Variation 14.8 % (11.5-14.5); RDW Standard Deviation 43.9 fL (36.4-46.3); Red Blood Count 4.74 M/uL (4.70-6.10); White Blood Count 14.31 K/ul (4.8-10.8)
[2023-10-15 00:25] LABS: BUN Creatinine Ratio 22.1 (10-20); Calcium 8.6 mg/dl (8.6-10.3); Est GFR (African American) 44.7 ml/min; Est GFR (Non-African American) 38.6 ml/min; Magnesium 2.1 mg/dl (1.7-2.4); Phosphorus 3.7 mg/dl (2.5-4.9); Potassium 3.3 mmol/L (3.5-5.1)
[2023-10-15] MEDS ORDERED: LACTATED RINGER'S 500 ML IV ONE (00:27)
[2023-10-15] MEDS ORDERED: LACTATED RINGER'S 1,000 ML IV SCH (02:00)
[2023-10-15] MEDS: POTASSIUM CHLORIDE / WTR 10 MEQ/100 ML PLCT IV SCH ×2 (02:58→04:01)
[2023-10-15 06:33] LABS: Basophils # (auto) 0.05 K/uL (0.00-0.20); Basophils % (auto) 0.3 %; Eosinophils # (auto) 0.36 K/uL (0.00-0.50); Eosinophils % (auto) 2.4 %; Hematocrit (blood only) 39.8 % (42.0-52.0); Hemoglobin 12.9 g/dl (14.0-18.0); Immature Granulocytes # (auto) 0.07 K/uL (0.01-0.20); Immature Granulocytes % (auto) 0.5 %; Lymphocytes % (auto) 14.6 %; Mean Corpuscular Hemoglobin 26.5 pg (25.0-34.0); Mean Corpuscular Hgb Conc 32.4 g/dL (32.0-36.0); Mean Corpuscular Volume 81.7 fL (80.0-100.0); Mean Platelet Volume 12.2 fL (9.4-12.4); Monocytes # (auto) 1.54 K/uL (0.11-0.59); Monocytes % (auto) 10.3 %; Neutrophils % (auto) 71.9 %; Platelet Count 179 K/uL (130-400); RDW Coefficient of Variation 14.8 % (11.5-14.5); RDW Standard Deviation 44.2 fL (36.4-46.3); Red Blood Count 4.87 M/uL (4.70-6.10); White Blood Count 15.02 K/ul (4.8-10.8)
[2023-10-15 06:49] LABS: BUN Creatinine Ratio 20.5 (10-20); Calcium 8.7 mg/dl (8.6-10.3); Creatinine Clr Calc Pharmacy 52.8 ml/min; Est GFR (African American) 50.3 ml/min; Est GFR (Non-African American) 43.4 ml/min; Magnesium 1.9 mg/dl (1.7-2.4)
[2023-10-15 06:54] LABS: INR 1.2 (0.9-1.1); Prothrombin Time 12.5 Seconds (9.0-12.0)
[2023-10-15] MEDS ORDERED: METOPROLOL SUCC 25MG EXT REL TAB PO SCH (09:00)
[2023-10-15] MEDS ORDERED: FINASTERIDE 5 MG TAB PO SCH (09:00)
[2023-10-15] MEDS: METOPROLOL SUCC 25MG EXT REL TAB PO SCH (09:24)
[2023-10-15] MEDS: ATORVASTATIN 40 MG TAB PO SCH (09:39)
[2023-10-15] MEDS: APIXABAN 5 MG TABLET PO SCH (09:39)
[2023-10-15] MEDS: ASPIRIN 81 MG ECTAB PO SCH (09:40)
--- NOTE | 2023-10-15 10:23 | Electrocardiogram Report ---
Test Reason : Blood Pressure : / mmHG Vent. Rate : 113 BPM Atrial Rate : 057 BPM P-R Int : 000 ms QRS Dur : 142 ms QT Int : 384 ms P-R-T Axes : 000 069 257 degrees QTc Int : 526 ms Atrial fibrillation with premature ventricular or aberrantly conducted complexes Left ventricular hypertrophy with QRS widening and repolarization abnormality Abnormal ECG When compared with ECG of 13-OCT-2023 09:41, Atrial fibrillation has replaced Sinus rhythm Vent. rate has increased BY 43 BPM Confirmed by Gilberto Retana ([id number]) on 10/15/2023 10:22:40 AM Referred By: REFERRED SELF Confirmed By:Gilberto Retana
[2023-10-15 13:25] LABS: Appearance Urine Slightly Cloudy (Clear); Bilirubin Urine Negative (Negative); Blood Urine 3+ (Negative); Color Urine Yellow; Glucose Urine UA Negative (Negative); Ketones Urine Negative (Negative); Leukocyte Esterase Urine 1+ (Negative); Nitrite Urine Negative (Negative); Protein Urine 1+ (Negative); Specific Gravity Urine 1.015 (1.000-1.030); Urobilinogen Urine Negative (Negative); pH Urine 5.5 (4.5-7.5)
[2023-10-15 13:43] LABS: Epithelial Cell Urine 0-5 /lpf (0-5); RBC Urine >30 /hpf (0-4)
[2023-10-15 13:45] LABS: Bacteria Urine Negative (Negative)
--- NOTE | 2023-10-15 14:01 | Discharge Summary ---
Date of Service October 15, 2023 Admission HPI Per Admitting Provider Chava Vidales is a 73 year old male with a PMH significant for hypertension, Ulcerative Colitis (On Mesalamine) hypercholesterolemia, paroxysmal atrial fibrillation (on Eliquis), and coronary artery disease (IMI, LCx IRA x2, 2005), BPH who presented to the [facility] ED on 10/12/23 with complaints of cough, chest pain, and orthopnea. He remained stable in the ED. Labs were significant for a leukocytosis of 14 with neutrophil predominance of 11, stable hgb, Cr of 1.83 (baseline is near 1.0), BUN of 44, two negative high sen troponins, BNP of 644 (no previous in our system). Chest xray was read as "1. Subtle lower lung interstitial thickening. This is likely within normal limits although mild pulmonary edema or an infectious process cannot be excluded. No consolidation identified. 2. Suspected trace right pleural effusion.". CT of the abd/pelvis wo con was read as "1. Subtle lower lung interstitial thickening. This is likely within normal limits although mild pulmonary edema or an infectious process cannot be excluded. No consolidation identified. 2. Suspected trace right pleural effusion.". Prior to admission the patient was given 40 mg IV lasix. At the time of the exam the patient was sitting in bed in no acute distress with his sittings bedside, history was obtained from both. The patient was seen by his PCP earlier this week and was found to be in new onset, rate controlled, afib. He was seen by Dr. Retana in the Cardiology clinic and was started on Eliquis, had his dose of metoprolol increased from 25 daily to 25 mg BID, and was continued on a baby aspirin. Over the past week he has been feeling as though he is getting more volume overloaded, especially in his abdomen. He has developed a non-productive cough and experienced chest pressure this am while lying flat. He states that the pain occurred shortly after waking. He got and and sat in his recliner and the pain continued but did not increase. He is still experiencing the chest discomfort at this time and denies radiation of the pain. This am he noticed some streaks of blood in his stool but denies sherrell blood. He did take all of his am medications, except his am dose of Mesalamine. He worked in [employer] for 15+ years and was diagnosed with black lung. He denies frequent use of NSAIDs, quite tobacco use approximately 17 years ago after his OR, and drinks socially on weekends. He is a full code and would want his to make medical decisions for him if he cannot make them himself. Please refer to Dr. rBavo's attestation for any changes to the treatment plan. Principal Diagnosis Urinary Retention, ?UTI Discharge Exam General: In no acute distress, stated age, well-nourished, non-toxic appearing HEENT: Normocephalic, atraumatic, no scleral icterus, no JVD, moist mucus membranes, trachea midline Chest/Pulm: No respiratory distress, symmetrical chest expansion, CTAB Cardiac: RRR. no murmurs noted Abdomen: No abdominal distention, normoactive bowel sounds, soft, non-tender to palpation throughout : Negative CVA tenderness BL. Campos draining blood-tinged urine Extremities: no peripheral edema noted b/l LE Skin: Warm, dry, no rashes , lesions, or scars noted Discharge Data Allergies Allergy/AdvReac Type Severity Reaction Status Date / Time aspirin Allergy Hives Verified 10/14/23 09:12 Consultations 10/13/23 12:59 ED Decision to Admit Stat 10/14/23 09:00 Consult Urology Routine Ordered Studies Laboratory Results WBC 15.02 K/ul (4.8-10.8) H 10/15/23 05:33 RBC 4.87 M/uL (4.70-6.10) 10/15/23 05:33 Hgb 12.9 g/dl (14.0-18.0) L 10/15/23 05:33 Hct 39.8 % (42.0-52.0) L 10/15/23 05:33 MCV 81.7 fL (80.0-100.0) 10/15/23 05:33 MCH 26.5 pg (25.0-34.0) 10/15/23 05:33 MCHC 32.4 g/dL (32.0-36.0) 10/15/23 05:33 RDW Std Deviation 44.2 fL (36.4-46.3) 10/15/23 05:33 RDW Coeff of Zak 14.8 % (11.5-14.5) H 10/15/23 05:33 Plt Count 179 K/uL (130-400) 10/15/23 05:33 MPV 12.2 fL (9.4-12.4) 10/15/23 05:33 Immature Gran % (Auto) 0.5 % 10/15/23 05:33 Neut % (Auto) 71.9 % 10/15/23 05:33 Lymph % (Auto) 14.6 % 10/15/23 05:33 Emmet % (Auto) 10.3 % 10/15/23 05:33 Eos % (Auto) 2.4 % 10/15/23 05:33 Baso % (Auto) 0.3 % 10/15/23 05:33 Neut # (Auto) 10.80 K/uL (1.40-6.50) H 10/15/23 05:33 Lymph # (Auto) 2.20 K/uL (1.20-3.40) 10/15/23 05:33 Emmet # (Auto) 1.54 K/uL (0.11-0.59) H 10/15/23 05:33 Eos # (Auto) 0.36 K/uL (0.00-0.50) 10/15/23 05:33 Baso # (Auto) 0.05 K/uL (0.00-0.20) 10/15/23 05:33 Immature Gran # (Auto) 0.07 K/uL (0.01-0.20) 10/15/23 05:33 PT 12.5 Seconds (9.0-12.0) H 10/15/23 05:33 INR 1.2 (0.9-1.1) H 10/15/23 05:33 APTT 32 Seconds (21-31) H 10/13/23 09:53 PTT Ratio 1.1 10/13/23 09:53 Sodium 138 mmol/L (136-145) 10/15/23 05:33 Potassium 4.0 mmol/L (3.5-5.1) D 10/15/23 05:33 Chloride 104 mmol/L (98-107) 10/15/23 05:33 Carbon Dioxide 25 mmol/L (21-32) 10/15/23 05:33 Anion Gap 9 (3-11) 10/15/23 05:33 BUN 32 mg/dl (6-23) H 10/15/23 05:33 Creatinine 1.56 mg/dl (0.6-1.4) H 10/15/23 05:33 Est Cr Clr Drug Dosing 52.8 ml/min 10/15/23 05:33 Est GFR ( Amer) 50.3 ml/min 10/15/23 05:33 Est GFR (Non-Af Amer) 43.4 ml/min 10/15/23 05:33 BUN/Creatinine Ratio 20.5 (10-20) H 10/15/23 05:33 Glucose 137 mg/dl (70-99(Fasting)) H 10/15/23 05:33 Calcium 8.7 mg/dl (8.6-10.3) 10/15/23 05:33 Phosphorus 3.7 mg/dl (2.5-4.9) 10/14/23 23:54 Magnesium 1.9 mg/dl (1.7-2.4) 10/15/23 05:33 Total Bilirubin 0.7 mg/dl (0.2-1.0) 10/13/23 09:53 AST 34 U/L (13-39) 10/13/23 09:53 ALT 48 U/L (7-52) 10/13/23 09:53 Alkaline Phosphatase 89 U/L (34-104) 10/13/23 09:53 Troponin I High Sens 8.2 pg/ml (0-20) 10/13/23 11:57 B-Natriuretic Peptide 644 pg/ml (0-100) H 10/13/23 11:57 Total Protein 7.6 gm/dl (6.0-8.3) 10/13/23 09:53 Albumin 4.1 gm/dl (3.4-5.0) 10/13/23 09:53 Globulin 3.5 gm/dl (2.5-4.0) 10/13/23 09:53 Albumin/Globulin Ratio 1.2 (0.9-2) 10/13/23 09:53 Lipase 62 U/L (11-82) 10/13/23 11:57 Procalcitonin < 0.05 ng/ml (0-0.5) 10/13/23 09:53 Urine Color Yellow 10/15/23 12:50 Urine Appearance Slightly Cloudy (Clear) 10/15/23 12:50 Urine pH 5.5 (4.5-7.5) 10/15/23 12:50 Ur Specific Manquin 1.015 (1.000-1.030) 10/15/23 12:50 Urine Protein 1+ (Negative) H 10/15/23 12:50 Urine Glucose (UA) Negative (Negative) 10/15/23 12:50 Urine Ketones Negative (Negative) 10/15/23 12:50 Urine Blood 3+ (Negative) H 10/15/23 12:50 Urine Nitrite Negative (Negative) 10/15/23 12:50 Urine Bilirubin Negative (Negative) 10/15/23 12:50 Urine Urobilinogen Negative (Negative) 10/15/23 12:50 Ur Leukocyte Esterase 1+ (Negative) H 10/15/23 12:50 Urine WBC (Auto) 1-5 /hpf (0-5) 10/13/23 13:52 Urine RBC (Auto) 0-4 /hpf (0-4) 10/13/23 13:52 U Hyaline Cast (Auto) 0 /lpf (0-5) 10/13/23 13:52 U Epithel Cells (Auto) 0-5 /lpf (0-5) 10/13/23 13:52 Urine Bacteria (Auto) Negative (Negative) 10/13/23 13:52 Urine RBC >30 /hpf (0-4) H 10/15/23 12:50 Urine WBC 5-10 /hpf (0-5) H 10/15/23 12:50 Ur Epithelial Cells 0-5 /lpf (0-5) 10/15/23 12:50 Urine Bacteria Negative (Negative) 10/15/23 12:50 Ur Random Creatinine 35.6 mg/dl 10/13/23 13:52 U Random Total Protein < 4.0 mg/dl (0-11.9) 10/13/23 13:52 Protein/Creatinin Ratio TNP 10/13/23 13:52 Impressions Chest X-Ray 10/13/23 09:39 XR chest 1V not portable CLINICAL HISTORY: Chest pain, nonspecific COMPARISON STUDY: No previous studies for comparison. FINDINGS: There is no pneumothorax. Possible trace right pleural effusion. Mild lower lung interstitial thickening is present. There is mild cardiomegaly. No consolidation is identified. IMPRESSION: 1. Subtle lower lung interstitial thickening. This is likely within normal limits although mild pulmonary edema or an infectious process cannot be excluded. No consolidation identified. 2. Suspected trace right pleural effusion. ACT 112: Negative or not required by law. Electronically signed by: Bryan Khan M.D. 10/13/2023 10:50 AM Abdomen/Pelvis CT 10/13/23 11:46 CT abd pelvis wo con CLINICAL HISTORY: ab pain, bloody stools, on eliquis, h/o UC TECHNIQUE: Helical axial images of the abdomen and pelvis were obtained. Automated dose lowering techniques and/or adjustment according to patient size were utilized for this exam. This exam was performed without intravenous contrast. CT DOSE: 1535.32 mGy.cm COMPARISON: Comparison is made to CT abdomen pelvis 11/08/2012 FINDINGS: Lower chest: Interstitial thickening and bilateral trace pleural effusions are seen, this may be seen in pulmonary edema. Liver: Unremarkable. No focal lesions are seen. Gallbladder and biliary tree: Cholelithiasis is seen without evidence of cholecystitis. No intra- or extrahepatic biliary ductal dilation. Pancreas: There is a solid-appearing mass in the pancreatic tail measuring 31 mm. 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 Spleen: Unremarkable. Adrenals: Unremarkable. Kidneys and ureters: A lateral hydronephrosis and hydroureter are seen. No obstructive stones. Bladder: Diffuse homogeneous wall thickening is seen. Reproductive organs: Prostatomegaly is seen. Bowel: Diverticulosis is seen without diverticulitis. The appendix is normal. There is a small hiatal hernia. Lymph nodes Retroperitoneal: Unremarkable. Pelvic: Unremarkable. Mesenteric: Unremarkable. Peritoneum: Fat stranding is seen. Vessels: Atherosclerotic calcifications are seen. Abdominal wall: A fat-containing umbilical hernia is seen. Bones: Degenerative changes in the visualized spine. IMPRESSION: 1. No acute abnormalities are seen. There is diverticulosis without diverticulitis. 2. Prostatomegaly with chronic bladder outlet obstruction with resultant hydronephrosis and hydroureter. 3. Cholelithiasis without cholecystitis. ACT 112: Negative or not required by law. Electronically signed by: Wali Johnson M.D. 10/13/2023 12:22 PM Hospital Course (1) Urinary retention: -At this time the primary etiology of his volume overload appears to be a urinary obstruction due to BPH -CT of the abd/pelvis wo con shows signs consistent with urine retention due to known BPH -Campos catheter placed on admission with good output -Urology consulted -continue campos 7-10 days - f/u with urology outpatient -cont. flomax, finasteride (2) Volume overload: -On admission, had an elevated BNP, JVD, and signs of mild pulmonary edema which could be associated with CHF, however, unsure if this is mainly due to volume overload which started from his urinary obstruction -S/P 40 mg IV lasix in the ED -Campos catheter placed on admission -Improved volume status with catheter placement, 7L output- now euvolemic -TTE unremarkable -Discontinued Lasix (3) PAF (paroxysmal atrial fibrillation): -Recent diagnosis earlier this week on ECG at PCP's office -Saw Dr. Retana 10/12 and was started on Eliquis with increase in metoprolol dosing -cont. eliquis, metoprolol (4) Hematuria: -Hgb stable -Likely secondary to Eliquis -We will continue Eliquis for now for stroke risk reduction from AF (5) SEGUN (acute kidney injury): -Cr is 1.86 on admission, baseline ~1.0 -Likely due to his bladder outlet obstruction with significant urinary retention- postrenal azotemia -Cr continues to improve, however, will need repeat creatinine check outpatient for resolution (6) Chest pain: -Chest pain on admission has resolved -Negative troponin x2, normal EKG in ER -Was likely due to volume overload leading to pulmonary edema -TTE unremarkable (7) Leukocytosis: -Patient continues to have elevated WBC. Afebrile. Unclear why this is but presuming stress reaction vs ?UTI. -CXR notes possible lower lung interstitial thickening -CTAP negative for acute infectious findings -will obtain UA and culture prior to discharge - empirically starting 10 day course of treatment. If culture negative can discontinue antibiotic. (8) Feces bloodstained: -Patient noted one episode of blood streaked feces prior to admission -CT of the abd/pelvis wo con was negative for acute GI findings -Denies sherrell blood per rectum at this time (9) Hypertension: -Stable (10) CAD (coronary artery disease): -S/P stent placement x 1 at [facility] approximately 17 years ago -Cardiac workup in the ED is unremarkable besides elevated BNP -Continue aspirin, Elqiuis, and statin -TTE unremarkable (11) Ulcerative colitis: -Continue BID mesalamine -No acute flare at present Total Time Total Time Spent Total Time Spent (In Minutes): 30 Discharge Plan Discharge Items Patient Disposition: Home - Self-Care Reason For Visit: SEGUN, BLADDER OUTLET OBSTRUCTION, CHEST PAIN, CHF Discharge Diagnosis: Urinary Retention Activity: Per Instructions section Non-emergency contact: Primary Care Provider Call non-emergency contact if: you have any medication questions Follow-up/Referrals: Ivy George MD [Primary Care Provider] - (PLEASE CALL YOUR PRIMARY CARE PROVIDER TO SCHEDULE A FOLLOW-UP HOSPITAL DISCHARGE APPOINTMENT WITHIN 7-10 DAYS) Diet: Heart Healthy and Low Sodium (2gm) Addtl Attending Provider Instructions: You admitted to the hospital for urinary retention. He had a urinary catheter placed during your visit. He was seen by urology who would like to follow-up with you in 1 week for next steps but in the meantime the catheter will repeat main in place. To help with the urination he will be on 2 medications as below. These have been sent to your pharmacy. 1. Tamsulosin (flomax) 0.4mg daily 2. Finasteride 5mg daily There is also some concern for a possible urinary tract infection due to your white blood cell count being elevated. We will obtain a urine sample and check for bacteria before you leave. In the meantime we will start you on an antibiotic which I have sent to your pharmacy as below. You should follow-up with your primary care provider early this upcoming week to go over results of urine culture and determine whether or not you need to continue the antibiotic. 3. Bactrim twice a day to completion Pending Studies at Discharge: Yes (UA + culture) Stand-Alone Forms: [facility], Smoking Cessation Medications and DC Order Prescriptions: New tamsulosin 0.4 mg capsule 0.4 mg PO HS Qty: 30 0RF finasteride 5 mg tablet 5 mg PO DAILY Qty: 30 0RF sulfamethoxazole-trimethoprim [Bactrim DS] 800-160 mg tablet 1 tab PO BID 10 Days Qty: 20 0RF Continued lisinopril 2.5 mg tablet 2.5 mg PO DAILY Qty: 90 3RF atorvastatin 40 mg tablet 40 mg PO DAILY Qty: 90 3RF Eliquis 5 mg tablet 5 mg PO BID Qty: 180 3RF nitroglycerin 0.4 mg tablet, sublingual 0.4 mg sublingual Q5M PRN (Reason: chest pain) Qty: 20 1RF Rx Instructions: do not exceed 3 doses per episode psyllium husk [Daily Fiber] PO QID metoprolol succinate 50 mg tablet extended release 24 hr 25 mg PO BID cinnamon bark 1,000 mg PO BID garlic 1,000 mg capsule 1,000 mg PO DAILY multivitamin [Daily Multi-Vitamin] Tablet 1 tab PO DAILY aspirin 81 mg tablet,delayed release (DR/EC) 81 mg PO DAILY mesalamine 1.2 gram tablet,delayed release (DR/EC) 2.4 g PO DAILY Discharge Orders: Discharge Order (Routine); Ordered 10/15/23 Ordered By: Pedro Lynne Admission Data Admit Date/Time: 10/13/23 13:14 Attending Provider: Taran Mcfarlane Admit Provider: Omkar Bravo Primary Care Provider: Ivy George Other Providers: Omkar Bravo; Marciano Del Rosario; Chava Lopez; Lazaro Mittal; Michaela Phoenix; Scott Coreas; Sarah Jarquin; Ruth Ann Jacobs; Jesus Giraldo; Eunice Mata; Oral Hardy; Jake Rasheed Supervising Physician Co-Signing Physician Notes ATTESTATION I also saw the patient and confirmed massey portions of the history and exam. I agree with the impression and plan in the resident documentation, and as summarized below. Upon her midmorning exam, the patient was seated in bed with his at bedside. He is without complaints and looking forward to discharge. EXAM 113/72, 76, 16, 36.7, 96% on room air Auscultation today is regular, rate mid 70s Respirations nonlabored Abdomen soft and nontender DATA Labs White blood cell count up slightly to 15.02, hemoglobin 12.9, platelet count 179 Creatinine 1.56, continuing to improve IMPRESSION & PLAN Acute urinary tension secondary to bladder outlet obstruction Acute renal failure secondary to above Atrial fibrillation Hematuria Patient desires discharge today, and I think that is reasonable. We discussed signs and symptoms which to monitor which would prompt return to the hospital. Will need follow-up with urology; will be discharged with Campos for at least 7-10 days, then likely voiding trial +/- cystoscopy as an outpatient Will need follow-up with cardiology Will need follow-up with PCP; recommend recheck CBC and BMP to assure resolution of leukocytosis and normalization of serum creatinine Discussed with the patient and his the mild persistent leukocytosis; no obvious infection. He would be at risk for urinary/prostate given his urinary tension, prostamegaly, and Campos catheter. Draw you urine sample for culture prior to discharge Bactrim DS 1 p.o. twice daily x 10 days, although may stop/change based on results of urine culture Additional per resident documentation Resident Activity Tracking Resident Involvement: Resident Care Provided Care Provided: Adult [facility] Medicine
== END 2023-10-15 15:22 | disposition home or self-care (01) ==
LOC: ED 09:31 → EDINP 13:14 → INTOOBSV 13:14 → SUATTDRO 13:14 → 2N 16:54
DX: Z79.82 Long term (current) use of aspirin; I48.0 Paroxysmal atrial fibrillation; N32.0 Bladder-neck obstruction; K51.911 Ulcerative colitis, unspecified with rectal bleeding; D72.829 Elevated white blood cell count, unspecified; Z79.899 Other long term (current) drug therapy; R33.9 Retention of urine, unspecified; E87.79 Other fluid overload; N40.1 Benign prostatic hyperplasia with lower urinary tract symptoms; I25.10 Atherosclerotic heart disease of native coronary artery without angina pectoris; R07.9 Chest pain, unspecified; E78.00 Pure hypercholesterolemia, unspecified; N17.9 Acute kidney failure, unspecified; I10 Essential (primary) hypertension; Z88.6 Allergy status to analgesic agent; Z87.891 Personal history of nicotine dependence; Z79.01 Long term (current) use of anticoagulants

== ENCOUNTER 2023-11-24 17:05 | Inpatient (IN) ==
[2023-11-24 17:37] LABS: Basophils # (auto) 0.04 K/uL (0.00-0.20); Basophils % (auto) 0.3 %; Eosinophils # (auto) 0.07 K/uL (0.00-0.50); Eosinophils % (auto) 0.4 %; Hematocrit (blood only) 24.9 % (42.0-52.0); Hemoglobin 8.1 g/dl (14.0-18.0); Immature Granulocytes # (auto) 0.19 K/uL (0.01-0.20); Immature Granulocytes % (auto) 1.2 %; Lymphocytes # (auto) 2.51 K/uL (1.20-3.40); Mean Corpuscular Hemoglobin 26.9 pg (25.0-34.0); Mean Corpuscular Hgb Conc 32.5 g/dL (32.0-36.0); Mean Corpuscular Volume 82.7 fL (80.0-100.0); Mean Platelet Volume 10.5 fL (9.4-12.4); Monocytes # (auto) 1.28 K/uL (0.11-0.59); Monocytes % (auto) 8.2 %; Neutrophils # (auto) 11.57 K/uL (1.40-6.50); Neutrophils % (auto) 73.9 %; Platelet Count 236 K/uL (130-400); RDW Coefficient of Variation 15.2 % (11.5-14.5); RDW Standard Deviation 45.3 fL (36.4-46.3); Red Blood Count 3.01 M/uL (4.70-6.10); White Blood Count 15.66 K/ul (4.8-10.8)
[2023-11-24 17:46] LABS: Appearance Urine Cloudy (Clear); Color Urine Red
[2023-11-24 17:51] LABS: Bacteria Urine 1+ (Negative); RBC Urine >30 /hpf (0-4); WBC Urine >30 /hpf (0-5)
[2023-11-24 17:52] LABS: Albumin Globulin Ratio 1.4 (0.9-2); Albumin Level 3.9 gm/dl (3.4-5.0); BUN Creatinine Ratio 23.5 (10-20); Bilirubin,Total 0.3 mg/dl (0.2-1.0); Calcium 8.4 mg/dl (8.6-10.3); Creatinine Clr Calc Pharmacy 70.9 ml/min; Est GFR (African American) 69.8 ml/min; Est GFR (Non-African American) 60.2 ml/min; Globulin 2.8 gm/dl (2.5-4.0); Total Protein 6.7 gm/dl (6.0-8.3)
[2023-11-24 18:01] LABS: Partial Thromboplastin Time 28 Seconds (21-31); Prothrombin Time 11.3 Seconds (9.0-12.0)
[2023-11-24 18:04] LABS: Specific Gravity Urine 1.017 (1.000-1.030)
--- NOTE | 2023-11-24 18:38 | Emergency Department Note ---
Impression & Plan Anemia, Hematuria ED Provider Note NAME: BONNY BIRD AGE: 73 SEX: M : 1950 ARRIVES VIA: Walk-In INFORMANT: Patient, ED PROVIDER(S): Gilberto Inman DO CHIEF COMPLAINT: Hematuria HPI: The patient is a 73-year-old male who presented to the emergency department at the request of his primary urologist. The patient's been having problems with his urinary catheter. He is currently on Cipro for urinary tract infection. The urinary catheter stopped draining and the patient went to his urologist to have it irrigated. He has been having significant hematuria. He is currently not taking his blood thinner that he was on for atrial fibrillation. The patient was found to have anemia and was sent to the emergency department for "repeat studies ". ROS: See above HPI for pertinent positives & negatives. A total of 10 systems reviewed and were otherwise negative. PAST MEDICAL HISTORY: See Below PAST SURGICAL HISTORY: See Below FAMILY HISTORY: See Below SOCIAL HISTORY: See Below HOME MEDICATIONS: See Below ALLERGIES: See Below VITALS: See Below PHYSICAL EXAMINATION: GENERAL: Patient is awake alert in no acute distress patient is resting comfortably and showing no signs of anxiety EYES: The conjunctivae are clear. The pupils are round and reactive. EARS, NOSE, MOUTH AND THROAT: The nose is without any evidence of any deformity. NECK: The neck is nontender and supple. RESPIRATORY: Normal respiratory effort is noted there is no evidence of wheezing rhonchi or rales CARDIOVASCULAR: Regular rate and rhythm noted there no murmurs rubs or gallops normal S1 normal S2. GASTROINTESTINAL: The abdomen is soft. Abdomen is nontender. MUSCULOSKELETAL/EXTREMITIES: There is no evidence of gross deformity full range of motion is noted in the hips and shoulders. SKIN: There is no obvious evidence of any rash. There are no petechiae, pallor or cyanosis noted. NEUROLOGIC: Patient is awake alert and oriented x3 MEDICAL DECISION MAKING: The patient is a 73-year-old male who presented to the emergency department for an evaluation of anemia. The patient has been having hematuria. He had a Cook catheter placed. His anticoagulation for his atrial fibrillation has been held recently. The patient presented to the emergency department from urology after he was found that he was having significant hematuria as well as anemia. It is felt that he may need a blood transfusion. He was sent to the emergency department for further evaluation. I discussed the patient's laboratory results with him. I discussed his condition with the on-call [facility] hospitalist. They have agreed to evaluate the patient in the emergency department. At this time he does not require an emergent blood transfusion. Vital signs are reassuring but given his history of coronary artery disease he may require transfusion a lower threshold. Triage Nursing notes reviewed. Prior medical records reviewed Vital Signs: reviewed and remarkable for no significant abnormalities Differential diagnosis: Infection, dehydration, metabolic abnormality, hypo/hyperglycemia, electrolyte disturbance, anemia, hypoxia, cardiac sources, intracerebral event, toxicologic, neurologic, as well as other pathologies. ER treatment provided: See below Diagnostics interpreted by me: ECG: EKG was obtained in the emergency department. My interpretation is sinus rhythm at 73 bpm. There was PVCs noted. Nonspecific ST segment abnormalities are noted. This was compared to a tracing from October 14, 2023. Sinus rhythm has replaced atrial fibrillation. The earlier tracing. Cardiac Monitoring: An order was placed for continuous cardiac monitoring. The monitor shows a rate of 82 bpm with sinus rhythm Laboratory studies: As stated above and show below. Imaging studies: See below. Consultation(s): I discussed this case with Dr. Frazier [facility] Past Med/Surg History Medical History (Updated 11/24/23 @ 21:52 by Gilberto Inman DO) Hypercholesterolemia Borderline diabetes diet controlled and recent weight loss Black lung disease recent testing [facility] in the black lung division 11/08/23, has been found in the past in his lungs, just needed an updated test Ulcerative colitis Myocardial Infarction ~2005, inferior [place]- [place] [facility] Atrial fibrillation Newly diagnosed 10/11/23, currently on eliquis; f/u dr. lizarraga Hypertension BPH (benign prostatic hyperplasia) CAD (coronary artery disease) s/p LCx IRA x 2 in 2005 Surgical History (Updated 11/24/23 @ 19:36 by Jaylin Ma MD) S/P TURP Hx of bilateral inguinal hernia repair Hx of colonoscopy Hx of arthroscopy of shoulder rt-w/RCT repair History of heart artery stent ~2001, flown to [facility] [place]had cardiac cath w/2 stents (unsure what type); f/u dr. lizarraga History of cardiac cath ~2001, [place], flown to [facility] from [place]>had cardiac cath w/2 stents; f/u dr. 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 How many Children do You have: 2 Feels Safe at Home: Yes Assistive Devices: Glasses and Hearing Aid - Bilateral Allergies Allergies Allergy/AdvReac Type Severity Reaction Status Date / Time No Known Allergies Allergy Verified 11/15/23 13:07 Home Meds Home Medications Medication Instructions Recorded Confirmed garlic 1,000 mg capsule 1,000 mg PO QAM 02/26/20 11/24/23 multivitamin (Daily Multi-Vitamin 1 tab PO QAM 02/26/20 11/24/23 tablet) aspirin 81 mg tablet,delayed 81 mg PO QAM 10/13/23 11/24/23 release mesalamine 1.2 gram tablet,delayed 2.4 g PO DAILY 10/13/23 11/24/23 release atorvastatin 40 mg tablet 40 mg PO QAM 11/09/23 11/24/23 cinnamon bark 500 mg capsule 500 mg PO BID 11/09/23 11/24/23 lisinopril 2.5 mg tablet 2.5 mg PO QAM 11/09/23 11/24/23 metoprolol tartrate 25 mg tablet 12.5 mg PO BID 11/24/23 11/24/23 Previous Rx's Medication Instructions Recorded nitroglycerin 0.4 mg sublingual 0.4 mg sublingual Q5M PRN chest 10/04/23 tablet pain #20 tabs apixaban 5 mg tablet (Eliquis) 5 mg PO BID #180 tabs 10/12/23 ciprofloxacin HCl 500 mg tablet 500 mg PO BID #14 tabs 11/23/23 (Cipro) Results & Data (ED) Vital Signs Vital Signs - 24 hr 11/24/23 17:07 11/24/23 19:22 11/24/23 19:28 Temperature 36.6 C 36.7 C Temperature Source Temporal Artery Scan Oral Pulse Rate 75 69 Pulse Rate [Left Finger] 72 Respiratory Rate 18 Respiratory Effort / Characteristics Non-Labored Spontaneous Non-Labored Respiratory Depth Normal Normal Respiratory Pattern Regular Regular Blood Pressure 118/61 Blood Pressure [Left Arm] 137/69 Blood Pressure Mean 80 Blood Pressure Mean [Left Arm] 91 Blood Pressure Position Sitting Blood Pressure Position [Left Arm] Sitting Pulse Oximetry 98 100 Oxygen Delivery Method Room Air Room Air Sepsis Recent Fever Within 48 Hours No Sepsis New/Unexplained Change in Mental Status N/A Sepsis Action Taken by Nursing No Action Required Home Medications Current Medication List: was personally reviewed by me Laboratory Data Attestation: I reviewed the patient's lab results. 11/24/23 17:19 11/24/23 17:19 Lab Results 11/24/23 11/24/23 Range/Units 17:17 17:19 WBC 15.66 H (4.8-10.8) K/ul RBC 3.01 L (4.70-6.10) M/uL Hgb 8.1 L (14.0-18.0) g/dl Hct 24.9 L (42.0-52.0) % MCV 82.7 (80.0-100.0) fL MCH 26.9 (25.0-34.0) pg MCHC 32.5 (32.0-36.0) g/dL RDW Std Deviation 45.3 (36.4-46.3) fL RDW Coeff of Zak 15.2 H (11.5-14.5) % Plt Count 236 (130-400) K/uL MPV 10.5 (9.4-12.4) fL Immature Gran % (Auto) 1.2 % Neut % (Auto) 73.9 % Lymph % (Auto) 16.0 % [place] % (Auto) 8.2 % Eos % (Auto) 0.4 % Baso % (Auto) 0.3 % Neut # (Auto) 11.57 H (1.40-6.50) K/uL Lymph # (Auto) 2.51 (1.20-3.40) K/uL [place] # (Auto) 1.28 H (0.11-0.59) K/uL Eos # (Auto) 0.07 (0.00-0.50) K/uL Baso # (Auto) 0.04 (0.00-0.20) K/uL Immature Gran # (Auto) 0.19 (0.01-0.20) K/uL PT 11.3 (9.0-12.0) Seconds INR 1.0 (0.9-1.1) APTT 28 (21-31) Seconds PTT Ratio 1.0 Sodium 134 L (136-145) mmol/L Potassium 4.0 (3.5-5.1) mmol/L Chloride 102 (98-107) mmol/L Carbon Dioxide 27 (21-32) mmol/L Anion Gap 5 (3-11) BUN 28 H (6-23) mg/dl Creatinine 1.19 (0.6-1.4) mg/dl Est Cr Clr Drug Dosing 70.9 ml/min Est GFR ( Amer) 69.8 ml/min Est GFR (Non-Af Amer) 60.2 ml/min BUN/Creatinine Ratio 23.5 H (10-20) Glucose 148 H (70-99(Fasting)) mg/dl Calcium 8.4 L (8.6-10.3) mg/dl Total Bilirubin 0.3 (0.2-1.0) mg/dl AST 16 (13-39) U/L ALT 20 (7-52) U/L Alkaline Phosphatase 59 (34-104) U/L Total Protein 6.7 (6.0-8.3) gm/dl Albumin 3.9 (3.4-5.0) gm/dl Globulin 2.8 (2.5-4.0) gm/dl Albumin/Globulin Ratio 1.4 (0.9-2) Urine Color Red Urine Appearance Cloudy A (Clear) Urine pH (4.5-7.5) Ur Specific [employer] 1.017 (1.000-1.030) Urine Protein (Negative) Urine Glucose (UA) (Negative) Urine Ketones (Negative) Urine Blood (Negative) Urine Nitrite (Negative) Urine Bilirubin (Negative) Urine Urobilinogen (Negative) Ur Leukocyte Esterase (Negative) Urine RBC >30 H (0-4) /hpf Urine WBC >30 H (0-5) /hpf Ur Epithelial Cells 5-10 H (0-5) /lpf Urine Bacteria 1+ H (Negative) Blood Type O Positive Antibody Screen NEGATIVE Discharge Plan Visit Data Chief Complaint: Catheter Replacement Stated Complaint: ABNORMAL LABS/HEMOGLOBIN LOW, BLEEDING AROUND CATH ED Provider: Gilberto Inman Discharge Problem: Anemia, Hematuria Patient Disposition: Admitted As Inpatient Discharge Instructions Interventions: ED Discharge Assessment Last Done: 11/24/23 21:42 Discharge Problem: Anemia Qualifiers: Anemia type: unspecified type Qualified Code(s): D64.9 - Anemia, unspecified Hematuria Qualifiers: Hematuria type: gross Qualified Code(s): R31.0 - Gross hematuria
--- NOTE | 2023-11-24 19:53 | History & Physical Report ---
Date of Service November 24, 2023 Assessment & Plan (1) Hematuria: (2) Leukocytosis: (3) Urinary retention: (4) Ulcerative colitis: (5) PAF (paroxysmal atrial fibrillation): (6) Benign localized prostatic hyperplasia with lower urinary tract symptoms (LUTS): (7) Hypertension: (8) History of ME (myocardial infarction): (9) Hypercholesterolemia: (10) CAD (coronary artery disease): (11) S/P TURP: Plan 73-year-old male patient with past medical history of hyperlipidemia, diet- controlled prediabetes, ulcerative colitis, prior ME (2005), CAD, A-fib on Eliquis, hypertension, and BPH with LUTS status post TURP on 11/15/2023 who was admitted for management of urinary obstruction and hematuria. Hematuria -Patient with history of BPH with LUTS who is status post TURP on 11/15/2023, after which he was having gradually clearing urine. -Yesterday, patient experienced sensation of having to urinate but was not able to and on evaluation at urology clinic, Cook catheter was placed and drained 900 mL of dark red urine that cleared to bright red after flushing with a total of 420 cc -Sent home with ciprofloxacin -Labs ordered by urology office showed decrease hemoglobin of 10 compared to 12.8 in day after procedure -Patient had last dose of Eliquis yesterday -ED labs showing decreased hemoglobin to 8.3 and repeat CBC 4 hours later showing hemoglobin of 8.1 -Continue to hold home Eliquis and aspirin -H&H every 6 hours -Blood consent taken and placed in patient's physical chart -2 units of PRBC on hold -Consult urology -Will place patient n.p.o. after midnight -Admit to Med/Tele Leukocytosis -Patient with leukocytosis of 30 in yesterday's labs which improved to 16 on initial labs upon arrival to the emergency department -Patient with recent history of procedure (TURP on 11/15) -Patient without fevers or other associated symptoms -Monitor a.m. labs BPH with LUTS -Patient with Cook catheter placed and his urologist's office -Flush as needed A-fib -Currently stable -Will continue home metoprolol -Hold Eliquis due to current hematuria HTN -Continue lisinopril HLD -Continue home atorvastatin Ulcerative Colitis -Continue home mesalamine Pre-diabetes -Managed with diet and exercise at home -Last hemoglobin A1c 2021 was 6.2% -Blood sugar in the emergency department was 148 -Continue monitoring and management as an outpatient with PCP CAD -Home aspirin on hold -Continue lisinopril, atorvastatin Dispo: Admit to Med/Tele VTE ppx: SCDs; chemoprophylaxis held due to hematuria Diet: HH, DM-2; NPO after midnight History of Present Illness Chief Complaint: Hematuria Primary Care Provider: Ivy George MD Mr. Vidales is a 73-year-old male with past medical history of hyperlipidemia, prediabetes managed with lifestyle modifications, associated colitis, prior ME (2005), CAD, A-fib on Eliquis, hypertension, and BPH with LUTS status post TURP on 11/15/2023 who comes to the emergency department referred by his urologist office due to urinary retention and sherrell hematuria. Patient has long history of BPH with urinary obstruction and has been following with urology for management. Patient is status post TURP on 11/15, which went by without complications and his urine was clearing as the time went by. Gradually, patient describes having small red clots in his urine and will sometimes void with dark red blood in the toilet bowl. However, patient yesterday had felt like he had to urinate, but he could not. For this reason, he went to his urologist office and was found to have a urinary retention of 673 mL. In the office, they placed a catheter which drained 900 mL of dark red urine. They continue irrigating her and gradually his urine clear to bright red after flushing with 420 cc in total. Says his urine has cleared somewhat, he left the Cook catheter in to prevent any further obstruction and taught patient's to flush it at home and order some labs. Labs at this time had showed leukocytosis of 29 with neutrophilic predominance, hemoglobin of 10 which had decreased from 12.8 on the date of after procedure, and platelets of 303. CMP done at this time showed a sodium level of 133 and no other significant electrolyte abnormalities, and creatinine of 1.22. Due to decreased hemoglobin when compared to patient's previous values, patient was advised to go to the emergency room for further evaluation. On evaluation today, patient is awake alert and oriented in all spheres, accompanied by his , and in no acute distress. He denies having any symptoms of anemia such as lightheadedness, dizziness, palpitations, orthostatism, or any other symptoms. On questioning, patient states that he had stopped his Eliquis prior to his TURP procedure, but then restarted it 2 days after. When he noticed that his urine was very dark red, he stopped his Eliquis yesterday and has not taken an additional dose since. ED Course: Urinalysis was ordered as well as urine culture Labs/Imaging: Urinalysis ordered CBC showing persistent but improved leukocytosis of 16.59, decreased hemoglobin at 8.3 with normocytic MCV, and stable platelet at 256. Repeat CBC done 4 hours after initial leukocytosis still persistent but slightly improved at 15.66 with neutrophilic predominance, hemoglobin somewhat stabilized and showing a value of 8.1 still with normocytic MCV, and platelets of 236. Coagulation studies showing an INR of 1.0 and PT of 11.3. CMP showing mild hyponatremia with sodium levels of 134 and no other e lectrolyte abnormalities, renal function within reference range with creatinine 1.19, blood glucose of 148. Last hemoglobin A1c from 2021 showing a value of 6.2%. LFTs normal. Urinalysis showing dark red urine coloration with cloudy appearance, which limited evaluation of other parameters. Urine culture pending. Allergies Allergy/AdvReac Type Severity Reaction Status Date / Time No Known Allergies Allergy Verified 11/15/23 13:07 Home Medications Medication Instructions Recorded Confirmed Type garlic 1,000 mg capsule 1,000 mg PO QAM 02/26/20 11/24/23 History multivitamin (Daily Multi-Vitamin 1 tab PO QAM 02/26/20 11/24/23 History tablet) nitroglycerin 0.4 mg sublingual 0.4 mg sublingual Q5M PRN chest 10/04/23 11/24/23 Rx tablet pain #20 tabs apixaban 5 mg tablet (Eliquis) 5 mg PO BID #180 tabs 10/12/23 11/24/23 Rx aspirin 81 mg tablet,delayed 81 mg PO QAM 10/13/23 11/24/23 History release mesalamine 1.2 gram tablet,delayed 2.4 g PO DAILY 10/13/23 11/24/23 History release atorvastatin 40 mg tablet 40 mg PO QAM 11/09/23 11/24/23 History cinnamon bark 500 mg capsule 500 mg PO BID 11/09/23 11/24/23 History lisinopril 2.5 mg tablet 2.5 mg PO QAM 11/09/23 11/24/23 History ciprofloxacin HCl 500 mg tablet 500 mg PO BID #14 tabs 11/23/23 11/24/23 Rx (Cipro) metoprolol tartrate 25 mg tablet 12.5 mg PO BID 11/24/23 11/24/23 History Past Med/Surg History Medical History Hypercholesterolemia Borderline diabetes diet controlled and recent weight loss Black lung disease recent testing [facility] in the black lung division 11/08/23, has been found in the past in his lungs, just needed an updated test Ulcerative colitis Myocardial Infarction ~2005, inferior [place]- [place] [facility] Atrial fibrillation Newly diagnosed 10/11/23, currently on eliquis; f/u dr. lizarraga Hypertension BPH (benign prostatic hyperplasia) CAD (coronary artery disease) s/p LCx IRA x 2 in 2005 Surgical History (Updated 11/24/23 @ 19:36 by Jaylin Ma MD) S/P TURP Hx of bilateral inguinal hernia repair Hx of colonoscopy Hx of arthroscopy of shoulder rt-w/RCT repair History of heart artery stent ~2001, flown to [facility] from his [place]>had cardiac cath w/2 stents (unsure what type); f/u dr. lizarraga History of cardiac cath ~2001, [place], flown to [facility] from his [place]>had cardiac cath w/2 stents; f/u dr. 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 How many Children do You have: 2 Feels Safe at Home: Yes Assistive Devices: Glasses and Hearing Aid - Bilateral Review of Systems Review of Systems: As per HPI Physical Exam Physical Exam: GENERAL: Awake alert and oriented in all spheres, afebrile, no acute distress HEAD: Atraumatic, normocephalic EYES: EOM intact THROAT: Normal to visual inspection CHEST: Symmetric chest expansions with respirations, no visible deformity CARDIO: Regular rate and rhythm, no rubs murmurs or gallops appreciated PULMONARY: Clear to auscultation bilaterally, normal respiratory effort, no respiratory distress GI: Soft, nondistended, nontender : Positive Cook draining dark red urine EXTREMITIES: No swelling or calf tenderness in bilateral lower extremities SKIN: No rashes Results & Data Results & Data Vital Signs (Past 12 Hours) Vital Signs Temp Pulse Pulse Resp BP BP Pulse Ox 11/24/23 19:28 69 11/24/23 19:22 36.7 C 72 137/69 100 11/24/23 17:07 36.6 C 75 18 118/61 98 O2 Del Method 11/24/23 19:28 11/24/23 19:22 Room Air 11/24/23 17:07 Room Air Supervising Physician Co-Signing Physician Notes I have personally seen, evaluated and examined the patient. I have also personally discussed the management of the patient with the resident physician/JANETH and I agree with the exam findings documented in the history and physical examination and the documented assessment and plan unless otherwise stated below. Brief Exam: In general is a pleasant 73-year-old male who is alert and oriented x 3, exam he is in no acute distress at the time my exam he interacts appropriately pleasantly. HEENT: Normocephalic atraumatic. Heart: Regular rate and rhythm I do not appreciate any murmur or ectopy or rub- patient does have a history of atrial fibrillation but again appears regular on exam. Lungs: Clear bilaterally. Abdomen: Soft nontender positive bowel sounds I do not appreciate any organomegaly. Cook catheter is noted to be draining gross hematuria at this time. Extremities: Intact no clubbing cyanosis or edema. Neurologically: He is alert and oriented x 3 with no focal deficit on exam. Assessment/plan: As described above. Continuous bladder irrigation/CBI. Urological consultation in morning. Serial H&H's. Transfuse if needed. Please refer to orders for further planning.
--- NOTE | 2023-11-24 20:29 | Billing Data ---
Date of Service November 24, 2023 Coding Level of Care Code 24377 INT INP/OBS CARE
[2023-11-24] MEDS ORDERED: SODIUM CHLORIDE 0.9% 250 ML IV PRN (21:43)
[2023-11-24] MEDS ORDERED: ACETAMINOPHEN 325 MG TAB PO PRN (21:43)
[2023-11-24] MEDS: METOPROLOL TARTRATE 25 MG TAB PO SCH (22:09)
[2023-11-24] MEDS: CIPROFLOXACIN 500 MG TAB PO SCH (22:09)
[2023-11-24 22:40] LABS: Hematocrit (blood only) 21.5 % (42.0-52.0); Hemoglobin 7.2 g/dl (14.0-18.0)
[2023-11-25] MEDS: LACTATED RINGER'S 1,000 ML IV SCH (00:34)
[2023-11-25 03:56] LABS: Basophils # (auto) 0.04 K/uL (0.00-0.20); Basophils % (auto) 0.3 %; Eosinophils # (auto) 0.11 K/uL (0.00-0.50); Eosinophils % (auto) 0.9 %; Hematocrit (blood only) 24.1 % (42.0-52.0); Immature Granulocytes # (auto) 0.19 K/uL (0.01-0.20); Immature Granulocytes % (auto) 1.5 %; Lymphocytes # (auto) 2.62 K/uL (1.20-3.40); Lymphocytes % (auto) 20.7 %; Mean Corpuscular Hemoglobin 27.1 pg (25.0-34.0); Mean Corpuscular Hgb Conc 33.2 g/dL (32.0-36.0); Mean Corpuscular Volume 81.7 fL (80.0-100.0); Mean Platelet Volume 10.6 fL (9.4-12.4); Monocytes # (auto) 1.11 K/uL (0.11-0.59); Monocytes % (auto) 8.8 %; Neutrophils # (auto) 8.61 K/uL (1.40-6.50); Neutrophils % (auto) 67.8 %; Platelet Count 219 K/uL (130-400); RDW Coefficient of Variation 15.3 % (11.5-14.5); RDW Standard Deviation 45.2 fL (36.4-46.3); Red Blood Count 2.95 M/uL (4.70-6.10); White Blood Count 12.68 K/ul (4.8-10.8)
[2023-11-25 04:16] LABS: Calcium 8.5 mg/dl (8.6-10.3); Creatinine Clr Calc Pharmacy 80.3 ml/min; Est GFR (African American) 81.2 ml/min; Est GFR (Non-African American) 70.1 ml/min; Potassium 4.3 mmol/L (3.5-5.1)
[2023-11-25 09:42] LABS: Hematocrit (blood only) 23.4 % (42.0-52.0); Hemoglobin 7.6 g/dl (14.0-18.0)
--- NOTE | 2023-11-25 10:45 | Urology Consultation ---
Date of Consultation November 25, 2023 Assessment & Plan (1) Hematuria: (2) S/P TURP: Plan 73yo M who is s/p TURP 11/15/23 admitted with gross hematuria, anemia, leukocytosis. Afebrile and hemodynamically stable. Labs reviewed Leukocytosis downtrending to 12.68 today, creatinine 1.05, hemoglobin 7.6 (previously 8.0). Urine culture pending. On PO Cipro. Follow culture. Three-way Cook catheter intact and draining light red urine with CBI on slow. No clots visualized at time of exam. No plan for intervention at this time. OK for diet from our standpoint. Maintain Cook catheter. Titrate CBI as needed. Okay to hand irrigate as needed for clots, retention, suprapubic pain. Continue to trend labs. Transfuse as felt necessary per primary team. Anticoagulation on hold. Continue supportive care. Urology will follow. History of Present Illness Attending Physician: Lorenzo Handy MD History of Present Illness 73 year old male who is status post TURP on 11/15/[address] Mittal who presented to the ED 11/24/23 referred by our office due to urinary retention, sherrell hematuria, anemia. Patient states his urine was initially clearing following his procedure. However he developed increasing issues with passing small clots and hematuria this past week. He was seen in our office and found to be in urinary retention and had a Cook catheter placed. He continued to have persistent and worsening hematuria despite attempts at irrigation. Outpatient labs were obtained showing leukocytosis of 29 and hemoglobin 10 (down from 12.8 postop). Due to this, patient was advised to go to the emergency room for further evaluation. In the ED he was afebrile and hemodynamically stable. Labs showing leukocytosis of 16.59, hemoglobin 8.3, creatinine 1.32. Urine culture collected and pending. He is on oral ciprofloxacin. Eliquis on hold. Catheter exchanged to a 24 English three-way Cook catheter and CBI initiated. A dmitted to medicine service for continued care and management. Patient examined at bedside in the ED this morning. Awake, resting in bed on arrival. No acute distress. 3-way Cook catheter intact draining light red urine with CBI on slow drip. No clots visualized at time of exam. Patient denies abdominal, suprapubic, flank pain. Denies fever, chills, nausea, vomiting. Has been NPO. Denies additional questions or concerns at present Allergies Allergy/AdvReac Type Severity Reaction Status Date / Time No Known Allergies Allergy Verified 11/15/23 13:07 Home Medications Medication Instructions Recorded Confirmed Type garlic 1,000 mg capsule 1,000 mg PO QAM 02/26/20 11/24/23 History multivitamin (Daily Multi-Vitamin 1 tab PO QAM 02/26/20 11/24/23 History tablet) nitroglycerin 0.4 mg sublingual 0.4 mg sublingual Q5M PRN chest 10/04/23 4 Rx tablet pain #20 tabs apixaban 5 mg tablet (Eliquis) 5 mg PO BID #180 tabs 10/12/23 11/24/23 Rx aspirin 81 mg tablet,delayed 81 mg PO QAM 10/13/23 11/24/23 History release mesalamine 1.2 gram tablet,delayed 2.4 g PO DAILY 10/13/23 11/24/23 History release atorvastatin 40 mg tablet 40 mg PO QAM 11/09/23 11/24/23 History cinnamon bark 500 mg capsule 500 mg PO BID 11/09/23 11/24/23 History lisinopril 2.5 mg tablet 2.5 mg PO QAM 11/09/23 11/24/23 History ciprofloxacin HCl 500 mg tablet 500 mg PO BID #14 tabs 11/23/23 11/24/23 Rx (Cipro) metoprolol tartrate 25 mg tablet 12.5 mg PO BID 11/24/23 11/24/23 History Patient History Medical History (Updated 11/24/23 @ 21:52 by Gilberto Inman DO) Hypercholesterolemia Borderline diabetes diet controlled and recent weight loss Black lung disease recent testing [facility] in the [facility] lung [facility] 11/08/23, has been found in the past in his lungs, just needed an updated test Ulcerative colitis Myocardial Infarction ~2005, inferior ID- follows with [facility] Atrial fibrillation Newly diagnosed 10/11/23, currently on eliquis; f/u dr. lizarraga Hypertension BPH (benign prostatic hyperplasia) CAD (coronary artery disease) s/p LCx IRA x 2 in 2005 Surgical History (Updated 11/24/23 @ 19:36 by Jaylin Ma MD) S/P TURP Hx of bilateral inguinal hernia repair Hx of colonoscopy Hx of arthroscopy of shoulder rt-w/RCT repair History of heart artery stent ~2001, flown to [facility] from [place]>had cardiac cath w/2 stents (unsure what type); f/u dr. lizarraga History of cardiac cath ~2001, , flown to [facility] from his camp>had cardiac cath w/2 stents; f/u dr. 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 [employer] How many Children do You have: 2 Feels Safe at Home: Yes Assistive Devices: None Review of Systems Review of Systems: All systems reviewed & are unremarkable except as noted in HPI & below Physical Exam Constitutional: well developed and well nourished; no acute distress Respiratory: no respiratory distress and no labored breathing Gastrointestinal (Abdomen): Percussion/Palpation: abdomen soft; abdomen nontender Musculoskeletal: Head/Neck/Chest: normocephalic Skin: No visible rashes or lesions to exposed skin areas Neurologic: moves all extremities and awake Psychiatric: A+Ox3, euthymic affect Genitourinary: Cook catheter intact draining light red urine with CBI on slow drip Results & Data Vital Signs (Past 12 Hours) Vital Signs Pulse Resp BP Pulse Ox O2 Del Method 11/25/23 07:56 73 11/25/23 07:00 69 17 97 Room Air 11/25/23 06:00 72 18 126/63 99 Room Air 11/25/23 05:00 61 15 98 Room Air 11/25/23 04:00 70 19 114/59 L 98 Room Air 11/25/23 03:41 73 16 140/73 99 Room Air 03/08/24 03:00 68 14 97 Room Air 11/25/23 02:00 68 14 114/62 97 Room Air 11/25/23 01:00 78 15 98 Room Air 11/25/23 00:35 65 17 112/65 100 Room Air 11/25/23 00:00 63 13 97 Room Air 11/24/23 23:45 65 17 98 Room Air PG Care Time/CCT Total # of Minutes Spent Total Time Spent with Patient: Total time spent is greater than 50% in coordination of care (as documented) at patient's floor/unit and/or counseling patient: Coding Level of Care Code 29928 INT INP/OBS CARE 2/55MIN Diagnoses Hematuria R31.0 Hematuria type: gross S/P TURP Z90.79 (1) Hematuria Hematuria type: gross Qualified Code(s): R31.0 - Gross hematuria
--- NOTE | 2023-11-25 11:02 | Electrocardiogram Report ---
Test Reason : Blood Pressure : / mmHG Vent. Rate : 073 BPM Atrial Rate : 073 BPM P-R Int : 158 ms QRS Dur : 090 ms QT Int : 392 ms P-R-T Axes : 029 043 -21 degrees QTc Int : 431 ms Sinus rhythm with occasional Premature ventricular complexes Left ventricular hypertrophy with repolarization abnormality Abnormal ECG When compared with ECG of 14-OCT-2023 21:40, Atrial fibrillation no longer present HR has decreased by 40 bpm Confirmed by Kieran Reed ([id number]) on 11/25/2023 11:01:55 AM Referred By: Ruth Ann Jacobs Confirmed By:Kieran Reed
[2023-11-25] MEDS: lisinopril 2.5 MG TAB PO SCH (11:09)
[2023-11-25] MEDS: ATORVASTATIN 40 MG TAB PO SCH (11:09)
--- NOTE | 2023-11-25 15:05 | Hospitalist Progress Note ---
Date of Service November 25, 2023 Assessment & Plan (1) Hematuria: Plan: Gross hematuria just developed and he now has a Cook catheter in place with continuous bladder irrigation. Urology consultation and recommendations noted. He had TUR procedure done on November 15. Hemoglobin is low but stable. Serial labs ordered (2) Urinary retention: Plan: Occurred most likely from clots associated with hematuria postoperatively. Cook catheter now in place. He is on continuous bladder irrigation (3) Ulcerative colitis: Plan: Stable. Continue current medical manage (4) PAF (paroxysmal atrial fibrillation): Plan: Stable. Eliquis and aspirin are temporarily on hold (5) Benign localized prostatic hyperplasia with lower urinary tract symptoms (LUTS): Plan: Status post TURP procedure November 15 of this year. Urology consultation and management (6) Hypertension: Plan: Stable. Continue current medical manage (7) Hypercholesterolemia: Plan: Stable. Continue current medical management (8) CAD (coronary artery disease): Plan: Stable. Continue current medical management Plan Hopeful discharge to home soon Admission and Anticipated Discharge Date Admission Date: November 24, 2023 Subjective Alert and oriented. No distress. Most recent hemoglobin 8.0. Serial labs ordered. Urology consultation and recommendations appreciated. He recently underwent TURP procedure on November 15. Eliquis and aspirin are on hold. Review of Systems 2 Review of Systems: Constitutional-no fever or chills ENT-no blurred vision, no double vision, no epistaxis, no sore throat Respiratory-no cough, no wheezing, no shortness of breath Cardiac-no palpitations, no chest pain, no syncope GI-no nausea, vomiting, diarrhea, melena, hematochezia -no urinary retention, no urinary incontinence, no dysuria. He has developed gross hematuria Musculoskeletal-no joint pain, no muscle tenderness Skin-no bruising, no rashes, no pruritus Neuro-no isolated weakness, no paresthesia, no weakness Psych-no depression, no anxiety Physical Exam 2 Physical Exam: General-alert and oriented x3, no fever, no chills HEENT-head atraumatic and normocephalic, pupils equal and reactive to light, extraocular muscles intact Neck-no lymphadenopathy or thyromegaly, trachea midline Chest-clear to auscultation. No rales wheezing or rhonchi Cardiac-regular rate and rhythm, normal S1 and S2 Abdomen-normal bowel sounds, nontender, no hepatosplenomegaly GUFoley catheter in place with evidence of gross hematuria Extremities-no cyanosis, clubbing, or edema Neuro-cranial nerves II through XII intact, motor and sensory function within normal limits, strength symmetrical, no focal deficits Psych-normal affect, normal mood Results & Data Results & Data Vital Signs (Past 12 Hours) Vital Signs Pulse Resp BP Pulse Ox O2 Del Method 11/25/23 14:02 66 12 106/68 98 Room Air 11/25/23 10:00 67 18 121/67 99 11/25/23 07:56 73 11/25/23 07:00 69 17 97 Room Air 11/25/23 06:00 72 18 126/63 99 Room Air 11/25/23 05:00 61 15 98 Room Air 11/25/23 04:00 70 19 114/59 L 98 Room Air 11/25/23 03:41 73 16 140/73 99 Room Air Laboratory Results 11/25/23 09:25 11/25/23 03:41 PG Care Time/CCT Total # of Minutes Spent Total Time Spent with Patient: Total time spent is greater than 50% in coordination of care (as documented) at patient's floor/unit and/or counseling patient: Coding Level of Care Code 58115 SUB INP/OBS CARE 3/50MIN Diagnoses Hematuria R31.9 Urinary retention R33.9 Ulcerative colitis K51.90 PAF (paroxysmal atrial fibrillation) I48.0 Benign localized prostatic hyperplasia with lower urinary tract symptoms (LUTS) N40.1 Hypertension I10 Hypercholesterolemia E78.00 CAD (coronary artery disease) I25.10
[2023-11-25 15:39] LABS: Hematocrit (blood only) 23.2 % (42.0-52.0); Hemoglobin 7.7 g/dl (14.0-18.0)
[2023-11-26 06:21] LABS: Basophils # (auto) 0.04 K/uL (0.00-0.20); Basophils % (auto) 0.4 %; Eosinophils # (auto) 0.18 K/uL (0.00-0.50); Eosinophils % (auto) 1.7 %; Hematocrit (blood only) 24.1 % (42.0-52.0); Hemoglobin 7.7 g/dl (14.0-18.0); Immature Granulocytes # (auto) 0.16 K/uL (0.01-0.20); Immature Granulocytes % (auto) 1.5 %; Lymphocytes # (auto) 2.11 K/uL (1.20-3.40); Lymphocytes % (auto) 19.6 %; Mean Corpuscular Hemoglobin 26.8 pg (25.0-34.0); Mean Platelet Volume 10.4 fL (9.4-12.4); Monocytes # (auto) 0.96 K/uL (0.11-0.59); Monocytes % (auto) 8.9 %; Neutrophils # (auto) 7.34 K/uL (1.40-6.50); Neutrophils % (auto) 67.9 %; Platelet Count 194 K/uL (130-400); RDW Coefficient of Variation 15.5 % (11.5-14.5); RDW Standard Deviation 46.4 fL (36.4-46.3); Red Blood Count 2.87 M/uL (4.70-6.10); White Blood Count 10.79 K/ul (4.8-10.8)
[2023-11-26 06:41] LABS: BUN Creatinine Ratio 14.8 (10-20); Calcium 8.5 mg/dl (8.6-10.3); Creatinine Clr Calc Pharmacy 78.1 ml/min; Est GFR (African American) 78.5 ml/min; Est GFR (Non-African American) 67.7 ml/min; Potassium 4.2 mmol/L (3.5-5.1)
[2023-11-26 06:47] LABS: Anisocytosis Present; Polychromasia 1+
--- NOTE | 2023-11-26 08:38 | Urology Progress Note ---
Date of Service November 26, 2023 Assessment & Plan (1) Hematuria: (2) S/P TURP: Plan 73yo M who is s/p TURP 11/15/23 admitted with gross hematuria, anemia, leukocytosis. Afebrile and hemodynamically stable. Labs reviewed Leukocytosis downtrending to 10.79 today, creatinine 1.08, hemoglobin 7.7 (previously 7.7). Urine culture prelim no growth. Would recommend prophylactic Bactrim or Ancef while on CBI His urine was dark maroon when I rounded this morning. I turned off his CBI and irrigated out a fairly large amount of old blood clot. I do not think he is actively bleeding. He was placed back on a light drip CBI and urine was very clear. No indication for OR today OK for diet from our standpoint. Please make n.p.o. at midnight tomorrow if urine does not improve as I likely would take him to the OR at that point Maintain Cook catheter. Titrate CBI as needed. Okay to hand irrigate as needed for clots, retention, suprapubic pain. Continue to trend labs. Transfuse as felt necessary per primary team. Hemoglobin fortunately stable today Anticoagulation on hold. If urine is clear tomorrow and does not require OR, likely would recommend restarting blood thinners so we can monitor consistency of urine in the hospital Continue supportive care. Urology will follow. All of this plan was discussed with patient and his and they were in agreement. Admission and Anticipated Discharge Date Admission Date: November 24, 2023 Subjective No acute issues overnight. Urine did get bloody or on CBI as drip was turned down. Review of Systems Review of Systems: 14 point review of systems negative outs jermaine of what is listed above in HPI Physical Exam Physical Exam: General: Alert and oriented, no acute distress HEENT: Normocephalic, mucous membranes moist Pulmonary: Nonlabored respirations Abdomen: Nondistended : Circumcised phallus with orthotopic meatus. Three-way catheter draining dark maroon urine on slow drip CBI Extremities: Moves all 4 spontaneously Neuro: No gross deficits Skin: Warm, dry, no rashes noted Results & Data Vital Signs (Past 12 Hours) Vital Signs Temp Pulse Pulse Resp BP BP Pulse Ox 11/26/23 07:45 36.5 C 76 18 112/54 L 94 11/26/23 07:19 62 11/26/23 02:57 36.5 C 68 16 121/64 97 11/25/23 22:51 36.7 C 65 18 101/61 97 11/25/23 22:00 67 O2 Del Method 11/26/23 07:45 Room Air 11/26/23 07:19 11/26/23 02:57 Room Air 11/25/23 22:51 Room Air 11/25/23 22:00 PG Care Time/CCT Total # of Minutes Spent Total Time Spent with Patient: Total time spent is greater than 50% in coordination of care (as documented) at patient's floor/unit and/or counseling patient: Coding Level of Care Code 25407 SUB INP/OBS CARE 2/35MIN Diagnoses Hematuria R31.0 Hematuria type: gross S/P TURP Z90.79 (1) Hematuria Hematuria type: gross Qualified Code(s): R31.0 - Gross hematuria
[2023-11-26] MEDS: MESALAMINE 800 MG TABCR PO SCH (10:10)
[2023-11-26] MEDS ORDERED: ceFAZolin 1000MG 1,000 MG/7.5 ML SYR IV SCH (12:30)
--- NOTE | 2023-11-26 12:31 | Hospitalist Progress Note ---
Date of Service November 26, 2023 Assessment & Plan (1) Hematuria: Plan: Gross hematuria recent developed and he now has a Cook catheter in place with continuous bladder irrigation. Urology consultation and recommendations noted. He had TUR procedure done on November 15. Hemoglobin is low but stable. Serial labs ordered. Oral Cipro has been switched to parenteral Ancef per urology recommendations (2) Urinary retention: Plan: Occurred most likely from clots associated with hematuria postoperatively. Cook catheter now in place. He is on continuous bladder irrigation (3) Ulcerative colitis: Plan: Stable. Continue current medical manage (4) PAF (paroxysmal atrial fibrillation): Plan: Stable. Eliquis and aspirin are temporarily on hold (5) Benign localized prostatic hyperplasia with lower urinary tract symptoms (LUTS): Plan: Status post TURP procedure November 15 of this year. Urology consultation and management (6) Hypertension: Plan: Stable. Continue current medical manage (7) Hypercholesterolemia: Plan: Stable. Continue current medical management (8) CAD (coronary artery disease): Plan: Stable. Continue current medical management Plan Hopeful discharge to home soon Admission and Anticipated Discharge Date Admission Date: November 24, 2023 Subjective Alert and oriented. No new problems. is at the bedside. Urology entry noted. Eliquis and aspirin are on hold. Will restart tomorrow, November 26, if hematuria continues to resolve. Parenteral Ancef replaces oral Cipro. Hemoglobin stable at 7.7. Review of Systems 2 Review of Systems: Constitutional-no fever or chills ENT-no blurred vision, no double vision, no epistaxis, no sore throat Respiratory-no cough, no wheezing, no shortness of breath Cardiac-no palpitations, no chest pain, no syncope GI-no nausea, vomiting, diarrhea, melena, hematochezia -no urinary retention, no urinary incontinence, no dysuria. Hematuria is resolving Musculoskeletal-no joint pain, no muscle tenderness Skin-no bruising, no rashes, no pruritus Neuro-no isolated weakness, no paresthesia, no weakness Psych-no depression, no anxiety Physical Exam 2 Physical Exam: General-alert and oriented x3, no fever, no chills HEENT-head atraumatic and normocephalic, pupils equal and reactive to light, extraocular muscles intact Neck-no lymphadenopathy or thyromegaly, trachea midline Chest-clear to auscultation. No rales wheezing or rhonchi Cardiac-regular rate and rhythm, normal S1 and S2 Abdomen-normal bowel sounds, nontender, no hepatosplenomegaly GUFoley catheter in place with evidence of gross hematuria which appears to be resolving Extremities-no cyanosis, clubbing, or edema Neuro-cranial nerves II through XII intact, motor and sensory function within normal limits, strength symmetrical, no focal deficits Psych-normal affect, normal mood Results & Data Results & Data Vital Signs (Past 12 Hours) Vital Signs Temp Pulse Pulse Resp BP BP Pulse Ox 11/26/23 11:20 36.5 C 71 18 100/60 97 11/26/23 07:45 36.5 C 76 18 112/54 L 94 11/26/23 07:19 62 11/26/23 02:57 36.5 C 68 16 121/64 97 O2 Del Method 11/26/23 11:20 Room Air 11/26/23 07:45 Room Air 11/26/23 07:19 11/26/23 02:57 Room Air Laboratory Results 11/26/23 05:57 11/26/23 05:57 PG Care Time/CCT Total # of Minutes Spent Total Time Spent with Patient: Total time spent is greater than 50% in coordination of care (as documented) at patient's floor/unit and/or counseling patient: Coding Level of Care Code 47628 SUB INP/OBS CARE 3/50MIN Diagnoses Hematuria R31.9 Urinary retention R33.9 Ulcerative colitis K51.90 PAF (paroxysmal atrial fibrillation) I48.0 Benign localized prostatic hyperplasia with lower urinary tract symptoms (LUTS) N40.1 Hypertension I10 Hypercholesterolemia E78.00 CAD (coronary artery disease) I25.10
[2023-11-26] MEDS: ceFAZolin 2000MG 2,000 MG/15 ML SYR IV SCH (13:37)
[2023-11-26 14:41] LABS: Hematocrit (blood only) 24.7 % (42.0-52.0); Hemoglobin 8.1 g/dl (14.0-18.0)
[2023-11-27 06:25] LABS: Basophils # (auto) 0.06 K/uL (0.00-0.20); Basophils % (auto) 0.5 %; Eosinophils # (auto) 0.27 K/uL (0.00-0.50); Eosinophils % (auto) 2.3 %; Hematocrit (blood only) 27.4 % (42.0-52.0); Hemoglobin 8.8 g/dl (14.0-18.0); Immature Granulocytes # (auto) 0.21 K/uL (0.01-0.20); Immature Granulocytes % (auto) 1.8 %; Lymphocytes # (auto) 2.25 K/uL (1.20-3.40); Mean Corpuscular Hemoglobin 27.2 pg (25.0-34.0); Mean Corpuscular Hgb Conc 32.1 g/dL (32.0-36.0); Mean Corpuscular Volume 84.6 fL (80.0-100.0); Mean Platelet Volume 10.7 fL (9.4-12.4); Monocytes # (auto) 0.98 K/uL (0.11-0.59); Monocytes % (auto) 8.3 %; Neutrophils # (auto) 8.08 K/uL (1.40-6.50); Neutrophils % (auto) 68.1 %; Platelet Count 235 K/uL (130-400); RDW Coefficient of Variation 15.4 % (11.5-14.5); RDW Standard Deviation 46.5 fL (36.4-46.3); Red Blood Count 3.24 M/uL (4.70-6.10); White Blood Count 11.85 K/ul (4.8-10.8)
[2023-11-27 06:43] LABS: BUN Creatinine Ratio 15.2 (10-20); Calcium 8.6 mg/dl (8.6-10.3); Creatinine Clr Calc Pharmacy 73.7 ml/min; Est GFR (African American) 75.1 ml/min; Est GFR (Non-African American) 64.8 ml/min; Potassium 4.3 mmol/L (3.5-5.1)
--- NOTE | 2023-11-27 08:35 | Urology Progress Note ---
Date of Service November 27, 2023 Assessment & Plan (1) S/P TURP: (2) Hematuria: (3) Anemia: Plan 73yo M who is s/p TURP 11/15/23 admitted with gross hematuria, anemia, leukocytosis. Afebrile and hemodynamically stable. Labs reviewed Leukocytosis , today, creatinine 1.12, hemoglobin 8.8. Urine culture no growth. Can discontinue antibiotics Urine light pink off CBI this morning. Catheter flushed and urine clear Can have diet today Maintain Cook catheter. Restart anticoagulation this morning, if urine clear in early afternoon patient can be discharged from urologic perspective Continue supportive care. Urology will follow. Message sent to schedule void trial early this week in clinic. Admission and Anticipated Discharge Date Admission Date: November 24, 2023 Subjective No acute issues overnight. Catheter draining light pink urine with CBI clamped. Review of Systems Review of Systems: 14 point review of systems negative outs jermaine of what is listed above in HPI Physical Exam Physical Exam: General: Alert and oriented, no acute distress HEENT: Normocephalic, mucous membranes moist Pulmonary: Nonlabored respirations Abdomen: Nondistended Extremities: Moves all 4 spontaneously Neuro: No gross deficits Skin: Warm, dry, no rashes noted Results & Data Vital Signs (Past 12 Hours) Vital Signs Temp Pulse Pulse Resp BP Pulse Ox O2 Del Method 11/27/23 08:02 36.6 C 88 18 118/62 96 Room Air 11/27/23 06:54 60 11/27/23 04:28 36.4 C L 68 18 107/66 98 Room Air 11/26/23 22:00 66 11/26/23 22:00 36.7 C 68 18 100/61 98 Room Air PG Care Time/CCT Total # of Minutes Spent Total Time Spent with Patient: Total time spent is greater than 50% in coordination of care (as documented) at patient's floor/unit and/or counseling patient: Coding Level of Care Code 21145 SUB INP/OBS CARE 2/35MIN Diagnoses S/P TURP Z90.79 Hematuria R31.0 Hematuria type: gross Anemia D64.9 Anemia type: unspecified type (2) Hematuria Hematuria type: gross Qualified Code(s): R31.0 - Gross hematuria (3) Anemia Anemia type: unspecified type Qualified Code(s): D64.9 - Anemia, unspecified
[2023-11-27] MEDS: MESALAMINE 1.2 GM PO ONE (08:50)
[2023-11-27] MEDS: APIXABAN 5 MG TABLET PO SCH (09:49)
--- NOTE | 2023-11-27 10:48 | Hospitalist Progress Note ---
Date of Service November 27, 2023 Assessment & Plan (1) Hematuria: Plan: Gross hematuria recent developed and he now has a Cook catheter in place. Gross hematuria is resolving and Eliquis has been restarted today, November 26. Urology entry noted. He will be discharged with a Cook catheter which will be removed as an outpatient in the office. He had TUR procedure done on November 15. Currently on intravenous Ancef. (2) Urinary retention: Plan: Occurred most likely from clots associated with hematuria postoperatively. Cook catheter now in place. Cook will remain in place at discharge and be removed at a later date in the office. (3) Ulcerative colitis: Plan: Stable. Continue current medical manage (4) PAF (paroxysmal atrial fibrillation): Plan: Stable. Eliquis has been restarted today, November 26 (5) Benign localized prostatic hyperplasia with lower urinary tract symptoms (LUTS): Plan: Status post TURP procedure November 15 of this year. Urology consultation and management (6) Hypertension: Plan: Stable. Continue current medical manage (7) Hypercholesterolemia: Plan: Stable. Continue current medical management (8) CAD (coronary artery disease): Plan: Stable. Continue current medical management Plan Hopeful discharge to home later today, November 26 Admission and Anticipated Discharge Date Admission Date: November 24, 2023 Subjective Alert and oriented. No distress. Eliquis has been restarted today, November 26. Urology entry noted. Hopefully home later today if he tolerates the Eliquis without worsening of the resolving hematuria. Cook catheter will remain in place at discharge per urology recommendation Review of Systems 2 Review of Systems: Constitutional-no fever or chills ENT-no blurred vision, no double vision, no epistaxis, no sore throat Respiratory-no cough, no wheezing, no shortness of breath Cardiac-no palpitations, no chest pain, no syncope GI-no nausea, vomiting, diarrhea, melena, hematochezia -no urinary retention, no urinary incontinence, no dysuria. Hematuria is resolving Musculoskeletal-no joint pain, no muscle tenderness Skin-no bruising, no rashes, no pruritus Neuro-no isolated weakness, no paresthesia, no weakness Psych-no depression, no anxiety Physical Exam 2 Physical Exam: General-alert and oriented x3, no fever, no chills HEENT-head atraumatic and normocephalic, pupils equal and reactive to light, extraocular muscles intact Neck-no lymphadenopathy or thyromegaly, trachea midline Chest-clear to auscultation. No rales wheezing or rhonchi Cardiac-regular rate and rhythm, normal S1 and S2 Abdomen-normal bowel sounds, nontender, no hepatosplenomegaly GUFoley catheter in place with evidence of resolving gross hematuria Extremities-no cyanosis, clubbing, or edema Neuro-cranial nerves II through XII intact, motor and sensory function within normal limits, strength symmetrical, no focal deficits Psych-normal affect, normal mood Results & Data Results & Data Vital Signs (Past 12 Hours) Vital Signs Temp Pulse Pulse Resp BP Pulse Ox O2 Del Method 11/27/23 08:02 36.6 C 88 18 118/62 96 Room Air 11/27/23 06:54 60 11/27/23 04:28 36.4 C L 68 18 107/66 98 Room Air 11/26/23 22:00 66 11/26/23 22:00 36.7 C 68 18 100/61 98 Room Air Laboratory Results 11/27/23 05:25 11/27/23 05:25 PG Care Time/CCT Total # of Minutes Spent Total Time Spent with Patient: Total time spent is greater than 50% in coordination of care (as documented) at patient's floor/unit and/or counseling patient: Coding Level of Care Code 46324 SUB INP/OBS CARE 3/50MIN Diagnoses Hematuria R31.9 Urinary retention R33.9 Ulcerative colitis K51.90 PAF (paroxysmal atrial fibrillation) I48.0 Benign localized prostatic hyperplasia with lower urinary tract symptoms (LUTS) N40.1 Hypertension I10 Hypercholesterolemia E78.00 CAD (coronary artery disease) I25.10
--- NOTE | 2023-11-27 13:33 | Discharge Summary ---
Date of Service November 27, 2023 Admission HPI Per Admitting Provider Mr. Vidales is a 73-year-old male with past medical history of hyperlipidemia, prediabetes managed with lifestyle modifications, associated colitis, prior MS (2005), CAD, A-fib on Eliquis, hypertension, and BPH with LUTS status post TURP on 11/15/2023 who comes to the emergency department referred by his urologist office due to urinary retention and sherrell hematuria. Patient has long history of BPH with urinary obstruction and has been following with urology for management. Patient is status post TURP on 11/15, which went by without complications and his urine was clearing as the time went by. Gradually, patient describes having small red clots in his urine and will sometimes void with dark red blood in the toilet bowl. However, patient yesterday had felt like he had to urinate, but he could not. For this reason, he went to his urologist office and was found to have a urinary retention of 673 mL. In the office, they placed a catheter which drained 900 mL of dark red urine. They continue irrigating her and gradually his urine clear to bright red after flushing with 420 cc in total. Says his urine has cleared somewhat, he left the Cook catheter in to prevent any further obstruction and taught patient's to flush it at home and order some labs. Labs at this time had showed leukocytosis of 29 with neutrophilic predominance, hemoglobin of 10 which had decreased from 12.8 on the date of after procedure, and platelets of 303. CMP done at this time showed a sodium level of 133 and no other significant electrolyte abnormalities, and creatinine of 1.22. Due to decreased hemoglobin when compared to patient's previous values, patient was advised to go to the emergency room for further evaluation. On evaluation today, patient is awake alert and oriented in all spheres, accompanied by his , and in no acute distress. He denies having any symptoms of anemia such as lightheadedness, dizziness, palpitations, orthostatism, or any other symptoms. On questioning, patient states that he had stopped his Eliquis prior to his TURP procedure, but then restarted it 2 days after. When he noticed that his urine was very dark red, he stopped his Eliquis yesterday and has not taken an additional dose since. ED Course: Urinalysis was ordered as well as urine culture Labs/Imaging: Urinalysis ordered CBC showing persistent but improved leukocytosis of 16.59, decreased hemoglobin at 8.3 with normocytic MCV, and stable platelet at 256. Repeat CBC done 4 hours after initial leukocytosis still persistent but slightly improved at 15.66 with neutrophilic predominance, hemoglobin somewhat stabilized and showing a value of 8.1 still with normocytic MCV, and platelets of 236. Coagulation studies showing an INR of 1.0 and PT of 11.3. CMP showing mild hyponatremia with sodium levels of 134 and no other electrolyte abnormalities, renal function within reference range with creatinine 1.19, blood glucose of 148. Last hemoglobin A1c from 2021 showing a value of 6.2%. LFTs normal. Urinalysis showing dark red urine coloration with cloudy appearance, which limited evaluation of other parameters. Urine culture pending. Principal Diagnosis Gross hematuria after TUR procedure, acute blood loss anemia Discharge Exam General-alert and oriented x3, no fever, no chills HEENT-head atraumatic and normocephalic, pupils equal and reactive to light, extraocular muscles intact Neck-no lymphadenopathy or thyromegaly, trachea midline Chest-clear to auscultation. No rales wheezing or rhonchi Cardiac-regular rate and rhythm, normal S1 and S2 Abdomen-normal bowel sounds, nontender, no hepatosplenomegaly GUFoley catheter in place with evidence of resolving gross hematuria Extremities-no cyanosis, clubbing, or edema Neuro-cranial nerves II through XII intact, motor and sensory function within normal limits, strength symmetrical, no focal deficits Psych-normal affect, normal mood Discharge Data Allergies Allergy/AdvReac Type Severity Reaction Status Date / Time No Known Allergies Allergy Verified 11/15/23 13:07 Consultations 11/24/23 18:34 ED Decision to Admit Stat 11/24/23 21:43 Consult Urology Routine Hospital Course (1) Hematuria: Gross hematuria recent developed and he now has a Cook catheter in place. Gross hematuria is resolving and Eliquis has been restarted today, November 26. Urology entry noted. He will be discharged with a Ocok catheter which will be removed as an outpatient in the office. He had TUR procedure done on November 15. Currently on intravenous Ancef. He will resume his oral Cipro when he gets home (2) Urinary retention: Occurred most likely from clots associated with hematuria postoperatively. Cook catheter now in place. Cook will remain in place at discharge and be removed at a later date in the office. (3) Ulcerative colitis: Stable. Continue current medical manage (4) PAF (paroxysmal atrial fibrillation): Stable. Eliquis has been restarted today, November 26 (5) Benign localized prostatic hyperplasia with lower urinary tract symptoms (LUTS): Status post TURP procedure November 15 of this year. Urology consultation and management (6) Hypertension: Stable. Continue current medical manage (7) Hypercholesterolemia: Stable. Continue current medical management (8) CAD (coronary artery disease): Stable. Continue current medical management Plan Home todayNovember 26 Total Time Total Time Spent Total Time Spent (In Minutes): 45 minutes Discharge Plan Discharge Items Patient Disposition: Home - Self-Care Reason For Visit: HEMATURIA Discharge Diagnosis: Gross hematuria after TUR procedure done November 15, acute blood loss anemia Activity: Resume your previous activity Non-emergency contact: Primary Care Provider and Urologist Call non-emergency contact if: your symptoms worsen Follow-up/Referrals: Ivy George MD [Primary Care Provider] - (PLEASE CALL YOUR PRIMARY CARE PROVIDER TO SCHEDULE A HOSPITAL DISCHARGE FOLLOW-UP APPOINTMENT WITHIN 7-10 DAYS) Diet: Regular and Heart Healthy Addtl Attending Provider Instructions: Resume ciprofloxacin antibiotic as before. Cook catheter remains in place. Follow-up with urology in the office for removal of the bladder catheter Pending Studies at Discharge: No Stand-Alone Forms: My [employer], Smoking Cessation Medications and DC Order Prescriptions: Continued Eliquis 5 mg tablet 5 mg PO BID Qty: 180 3RF Hold Instructions: Resume on 11/17/23. nitroglycerin 0.4 mg tablet, sublingual 0.4 mg sublingual Q5M PRN (Reason: chest pain) Qty: 20 1RF Rx Instructions: do not exceed 3 doses per episode garlic 1,000 mg capsule 1,000 mg PO QAM multivitamin [Daily Multi-Vitamin] Tablet 1 tab PO QAM ciprofloxacin HCl [Cipro] 500 mg tablet 500 mg PO BID Qty: 14 0RF aspirin 81 mg tablet,delayed release (DR/EC) 81 mg PO QAM mesalamine 1.2 gram tablet,delayed release (DR/EC) 2.4 g PO DAILY cinnamon bark 500 mg Capsule 500 mg PO BID atorvastatin 40 mg tablet 40 mg PO QAM lisinopril 2.5 mg tablet 2.5 mg PO QAM metoprolol tartrate 25 mg tablet 12.5 mg PO BID Discharge Orders: Discharge Order (Routine); Ordered 11/27/23 Ordered By: Lorenzo Handy Admission Data Admit Date/Time: 11/24/23 19:32 Attending Provider: Lorenzo Handy Admit Provider: Jaylin Ma Primary Care Provider: Ivy George Other Providers: Boubacar Frazier; Jesus Giraldo Coding Level of Care Code 77993 INP/OBS DISCH >30 MIN Diagnoses Hematuria R31.9 Urinary retention R33.9 Ulcerative colitis K51.90 PAF (paroxysmal atrial fibrillation) I48.0 Benign localized prostatic hyperplasia with lower urinary tract symptoms (LUTS) N40.1 Hypertension I10 Hypercholesterolemia E78.00 CAD (coronary artery disease) I25.10
== END 2023-11-27 14:36 | disposition home or self-care (01) | DRG 696 ==
LOC: ED 17:05 → SUATTDRO 19:32 → EDINP 19:32 → 2N 21:42
DX: Z79.01 Long term (current) use of anticoagulants; Z79.82 Long term (current) use of aspirin; N40.1 Benign prostatic hyperplasia with lower urinary tract symptoms; E78.00 Pure hypercholesterolemia, unspecified; I48.91 Unspecified atrial fibrillation; K51.90 Ulcerative colitis, unspecified, without complications; D72.829 Elevated white blood cell count, unspecified; R31.0 Gross hematuria; N39.0 Urinary tract infection, site not specified; R33.9 Retention of urine, unspecified; I25.10 Atherosclerotic heart disease of native coronary artery without angina pectoris; D62 Acute posthemorrhagic anemia; Z98.890 Other specified postprocedural states; I10 Essential (primary) hypertension; I25.2 Old myocardial infarction; F17.290 Nicotine dependence, other tobacco product, uncomplicated; R73.03 Prediabetes

== ENCOUNTER 2024-11-27 05:43 | Observation (INO) ==
--- NOTE | 2024-11-20 14:16 | Anesthesiology Consultation ---
Date of Service November 20, 2024 Assessment & Plan (1) Encounter for pre-operative examination: Chart Review Chart Review: Pending: Refer to Additional Notes / Consult section (please send note to Cardio requesting clearance prior to surgery; also pending confirmed EKG) and Patient NOT seen in Pre Admission Testing Infectious Disease screening: Per PAT nursing assessment on 11/15/24, No known infectious disease contacts in past 10 days or current infectious disease symptoms. No recent travel outside the country. History Surgery Operation Date: 11/27/24 08:40 Proposed Procedures p TURP (Transurethral Resection of Prostate) - Lazaro Mittal MD Height/Weight Height: 6 ft Weight: 106.594 kg Allergies Allergy/AdvReac Type Severity Reaction Status Date / Time metoprolol Allergy Severe hyperglycem Verified 11/15/24 10:45 ia Medications Home Medications Medication Instructions Recorded Confirmed Last Taken garlic 1,000 mg capsule 1,000 mg PO QAM 02/26/20 11/15/24 11/09/23 multivitamin (Daily Multi-Vitamin 1 tab PO QAM 02/26/20 11/15/24 11/09/23 tablet) nitroglycerin 0.4 mg sublingual 0.4 mg sublingual Q5M PRN chest 10/04/23 11/15/24 Unknown tablet pain #20 tabs apixaban 5 mg tablet (Eliquis) 5 mg PO BID #180 tabs 10/12/23 11/15/24 11/11/23 20:00 aspirin 81 mg tablet,delayed 81 mg PO QAM 10/13/23 11/15/24 11/11/23 08:00 release mesalamine 1.2 gram tablet,delayed 1.2 g PO UD 10/13/23 11/15/24 11/14/23 20:00 release atorvastatin 40 mg tablet 40 mg PO QAM 11/09/23 11/15/24 11/14/23 08:00 cinnamon bark 500 mg capsule 500 mg PO BID 11/09/23 11/15/24 11/09/23 lisinopril 2.5 mg tablet 2.5 mg PO QAM 11/09/23 11/15/24 11/14/23 08:00 diltiazem HCl 120 mg 120 mg PO QAM 04/25/24 11/15/24 Unknown capsule,extended release 24 hr, controlled mesalamine 1,000 mg rectal 1 g NE HS 11/15/24 11/15/24 Unknown suppository Past Medical History Medical History (Updated 11/20/24 @ 15:04 by Jolie Bunn PA-C) Atrial fibrillation paroxysmal; diagnosed 10/11/23, currently on eliquis Benign localized prostatic hyperplasia with lower urinary tract symptoms (LUTS) 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 follows with [facility] Cardiology. Hx of pulmonary edema 09/2023, treated inpatient [facility] Hypercholesterolemia Hypertension Obesity On anticoagulant therapy Ulcerative colitis Past Family History Family History Mother Colorectal cancer Father Heart disease Other No family history of adverse response to anesthesia Past Surgical History Surgical History (Updated 11/20/24 @ 15:24 by Jolie Bunn PA-C) History of cardiac cath 2005, [place], flown to [facility] from [place]>had cardiac cath w/2 stents; f/u dr. lizarraga History of heart artery stent 2005, flown to [facility] from [place], had cardiac cath w/x2 stents (unsure what type); f/u dr. lizarraga Hx of arthroscopy of shoulder rt-w/RCT repair Hx of bilateral inguinal hernia repair Hx of colonoscopy S/P TURP 11/15/23: LMA#5 iGel Social History Smoking Status: Former smoker Do You Dip or Chew Tobacco: No Smoking End Date: 2001 Hx Alcohol Use: Yes Alcohol type: beer alcohol intake frequency: holidays/special occasions only Hx Substance Use: No substance use type: does not use Lab Results Anesthesia Preop Results Results Anesthesia Widget: WBC 12.50 K/ul (4.8-10.8) H 11/19/24 Hgb 14.1 g/dl (14.0-18.0) 11/19/24 Hct 42.6 % (42.0-52.0) 11/19/24 Plt 173 K/uL (130-400) 11/19/24 Na 136 mmol/L (136-145) 11/19/24 K 4.1 mmol/L (3.5-5.1) 11/19/24 Cl 102 mmol/L (98-107) 11/19/24 CO2 27 mmol/L (21-32) 11/19/24 BUN 21 mg/dl (6-23) 11/19/24 Creat 1.00 mg/dl (0.6-1.4) 11/19/24 Glucose Level 96 mg/dl (70-99(Fasting)) 11/19/24 Testing Laboratory Results 11/14/24 urine culture: no growth Chest X-Ray Date: 11/19/24 Findings: + NAD Echocardiogram Date: 10/14/23 EF: 55-60% LV Function: normal RWMA: + none mild MR. mild TR pt in rapid afib during the study.
[2024-11-27] MEDS: LR 15ML/HR IV SCH (06:26)
[2024-11-27] MEDS ORDERED: ONDANSETRON INJ 2 MG/ML 2 ML VIAL ONE (07:01)
[2024-11-27] MEDS ORDERED: LIDOCAINE 2% 2 ML VIAL/AMP(20MG/ML) INFIL ONE (07:01)
[2024-11-27] MEDS ORDERED: DEXAMETHASONE SOD INJ 4 MG/ML VIAL ONE (07:01)
[2024-11-27] MEDS ORDERED: PROPOFOL IV EMULSION 10 MG/ML 20 ML VIAL IV ONE (07:01)
[2024-11-27] MEDS ORDERED: GLYCOPYRROLATE 0.2 MG/ML VIAL ONE (07:02)
[2024-11-27] MEDS ORDERED: MIDAZOLAM HCL 1 MG/ML 2ML VIAL ONE (07:02)
[2024-11-27] MEDS ORDERED: fentaNYL citrate PF 100 MCG/2 ML VIAL ONE (07:02)
--- NOTE | 2024-11-27 07:09 | History & Physical Bridge Note ---
Date of Service November 27, 2024 History & Physical Bridge Note I have examined the patient, reviewed the History & Physical and in the interval since the performance of the History & Physical I have noted the following changes of clinical significance: no changes noted
[2024-11-27] MEDS ORDERED: ONDANSETRON INJ 2 MG/ML 2 ML VIAL IV PRN (07:13)
[2024-11-27] MEDS ORDERED: ATROPINE SULFATE 0.1 MG/ML 10ML SYR IV PRN (07:13)
[2024-11-27] MEDS ORDERED: fentaNYL citrate PF 100 MCG/2 ML VIAL IV PRN (07:13)
[2024-11-27] MEDS ORDERED: ePHEDrine sulfate 50 MG/ML AMP IV PRN (07:13)
[2024-11-27] MEDS: CIPROFLOXACIN / D5W 400 MG/200 ML BAG IV SCH ×2 (07:20→19:39)
--- NOTE | 2024-11-27 08:44 | Operative Report ---
PG Post Operative Report Pre & Post Diagnosis Operation Date: 11/27/24 07:15 Pre-Op Diagnosis: Benign Localized Prostatic Hyperplasia with Lower Urinary Tract Symptoms Post-Op Diagnosis: Benign Localized Prostatic Hyperplasia with Lower Urinary Tract Symptoms I identified the patient and participated in the time-out.: Yes Procedure Operation Date: 11/27/24 07:15 Actual Procedures p Transurethral Resection of Prostate(Not Applicable) - Lazaro Mittal MD Surgeon Lazaro Mittal MD Cytogenetics Technologist none Estimated Blood Loss 10 Findings Consistent with Post-Op Diagnosis Specimens Prostate chips for routine pathology Description of Procedure The patient was identified in the preoperative holding area, appropriate infor med consents were reviewed and completed and the patient was transferred to the operative suite. Upon arrival, appropriate antibiotics and anesthesia were administered and the patient was placed in dorsal lithotomy position and prepped and draped in sterile fashion. To be in the case I passed a 26 Divehi cystoscope with 30 degree lens peer inspection revealed a healthy-appearing urethra and a prostate that is moderately obstructed with apical tissue and anterior redundancy. There is also still some residual lateral lobe tissue, however he is notably status post TURP and the intravesical portion of his prostate has previously been resected. His bladder is a very large and moderately distended upon entry with some debris in the dependent portion. There is no mucosal abnormality appreciated. His ureteral orifices are in orthotopic position and easily identified. After my full inspection I utilized a loop electrode and began to resect anterior tissue as well as residual lateral lobe tissue and ultimately apical tissue. I attempted to resect down towards capsule circumferentially to try to maximally reduce prostate obstruction. At the conclusion of the resection I irrigated all chips out of the bladder and I obtained meticulous hemostasis with the loop and a button electrode. I placed a 22 Divehi Cook catheter without difficulty and inflated the balloon with 30 cc. He will plan to stay overnight in the hospital tonight and we will hope for a voiding trial tomorrow morning. He is on Eliquis and previously had clot retention after TURP so I will likely hold his Eliquis for at least 48 if not 72 hours after surgery. I attest to the content of the Intraoperative Record and any orders documented therein. Any exceptions are noted below.
[2024-11-27] MEDS ORDERED: ACETAMINOPHEN 325 MG TAB PO PRN (09:46)
[2024-11-27] MEDS ORDERED: traMADol HCL 50 MG TABLET PO PRN (09:46)
[2024-11-27] MEDS ORDERED: NITROGLYCERIN SL 0.4 MG/TAB TAB SL PRN (09:46)
--- NOTE | 2024-11-27 09:48 | Anesthesiology Progress Note ---
Date of Service November 27, 2024 Anesthesia Post Procedure Vital Signs Vital Signs: Temp Pulse Pulse Resp BP Pulse Ox O2 Del Method 11/27/24 09:46 36.4 C L 60 16 145/65 H 97 Room Air 11/27/24 09:30 67 18 106/80 95 Room Air 11/27/24 09:20 62 16 114/86 96 Room Air 11/27/24 09:10 68 14 108/72 94 Room Air 11/27/24 09:00 36.4 C L 66 20 117/63 95 Room Air 11/27/24 08:50 64 16 113/80 99 Oxymask 11/27/24 08:40 61 12 119/69 99 Oxymask 11/27/24 08:30 36.6 C 64 12 128/73 97 Oxymask 11/27/24 06:04 36.5 C 68 20 135/74 96 Room Air O2 Flow Rate 11/27/24 09:46 11/27/24 09:30 11/27/24 09:20 11/27/24 09:10 11/27/24 09:00 11/27/24 08:50 2 11/27/24 08:40 4 11/27/24 08:30 6 11/27/24 06:04 Transfer of Care Handoff Completed per policy Notes Mental Status: alert / awake / arousable Patient Amnestic to Procedure: Yes Nausea / Vomiting: adequately controlled Pain: adequately controlled Airway Patency, RR, SpO2: stable & adequate BP & HR: stable & adequate Hydration State: stable & adequate Anesthetic Complications: no major complications apparent and Pt Satisfied with anesthetic care
[2024-11-27] MEDS: SODIUM CHLORIDE 0.9% 500 ML IV SCH (10:35)
[2024-11-27] MEDS: ATORVASTATIN 40 MG TAB PO SCH (10:38)
[2024-11-27] MEDS: dilTIAZem HCL 120 MG CAPCR PO SCH (10:38)
[2024-11-27] MEDS: lisinopril 2.5 MG TAB PO SCH (11:13)
[2024-11-28 07:52] LABS: Hematocrit (blood only) 43.1 % (42.0-52.0); Hemoglobin 14.4 g/dl (14.0-18.0); Mean Corpuscular Hemoglobin 27.5 pg (25.0-34.0); Mean Corpuscular Hgb Conc 33.4 g/dL (32.0-36.0); Mean Corpuscular Volume 82.4 fL (80.0-100.0); Mean Platelet Volume 10.4 fL (9.4-12.4); Platelet Count 233 K/uL (130-400); RDW Coefficient of Variation 13.7 % (11.5-14.5); RDW Standard Deviation 40.7 fL (36.4-46.3); Red Blood Count 5.23 M/uL (4.70-6.10); White Blood Count 25.87 K/ul (4.8-10.8)
[2024-11-28 08:09] VITALS: BP 142/74; PULSE 76; RESP 15; TEMP 98.1; O2SAT 96
[2024-11-28 08:15] LABS: BUN Creatinine Ratio 17.8 (10-20); Creatinine Clr Calc Pharmacy 90.1 ml/min; Potassium 3.9 mmol/L (3.5-5.1)
[2024-11-28 08:22] LABS: Basophils # (auto) 0.04 K/uL (0.00-0.20); Basophils % (auto) 0.2 %; Eosinophils # (auto) 0.01 K/uL (0.00-0.50); Immature Granulocytes # (auto) 0.21 K/uL (0.01-0.20); Immature Granulocytes % (auto) 0.8 %; Lymphocytes # (auto) 1.46 K/uL (1.20-3.40); Lymphocytes % (auto) 5.6 %; Monocytes # (auto) 1.35 K/uL (0.11-0.59); Monocytes % (auto) 5.2 %; Neutrophils % (auto) 88.2 %
--- NOTE | 2024-11-28 09:31 | Urology Progress Note ---
Date of Service November 28, 2024 Assessment & Plan (1) BPH (benign prostatic hyperplasia): (2) Elevated prostate specific antigen (PSA): Plan BPH status post TURP Postop day #1 Doing very well Voiding trial now and discharge home I would like him to potentially start aspirin back tomorrow followed by Jayy 24 to 48 hours later Admission and Anticipated Discharge Date Admission Date: November 27, 2024 Subjective No issues overnight Urine remains relatively clear Put out 6 L of urine Overall very happy with his current status Physical Exam Physical Exam: Relatively clear urine Results & Data Vital Signs (Past 12 Hours) Vital Signs Temp Pulse Pulse Resp BP BP Pulse Ox 11/28/24 07:45 36.7 C 76 15 142/74 H 96 11/28/24 03:30 36.3 C L 68 20 157/80 H 94 11/27/24 23:30 36.4 C L 73 18 149/90 H 93 O2 Del Method 11/28/24 07:45 Room Air 11/28/24 03:30 Room Air 11/27/24 23:30 Room Air PG Care Time/CCT Total # of Minutes Spent Total Time Spent with Patient: Total time spent is greater than 50% in coordination of care (as documented) at patient's floor/unit and/or counseling patient: Coding Level of Care Code None Diagnoses BPH (benign prostatic hyperplasia) N40.1 Lower urinary tract symptom detail: unspecified Lower urinary tract symptom presence: symptoms present Elevated prostate specific antigen (PSA) R97.20 (1) BPH (benign prostatic hyperplasia) Lower urinary tract symptom detail: unspecified Lower urinary tract symptom presence: symptoms present Qualified Code(s): N40.1 - Benign prostatic hyperplasia with lower urinary tract symptoms
--- NOTE | 2024-11-28 11:08 | Discharge Summary ---
Date of Service November 28, 2024 Admission HPI Per Admitting Provider Patient with BPH with lower urinary tract symptoms here for transurethral resection of prostate. Principal Diagnosis BPH with lower urinary tract symptoms Discharge Exam Constitutional well developed and well nourished; no acute distress Respiratory normal respiratory effort; no respiratory distress and no labored breathing Gastrointestinal (Abdomen) Inspection/Auscultation: abdomen normal to inspection Musculoskeletal Head/Neck/Chest: normocephalic Neurologic moves all extremities and awake Psychiatric Orientation: alert and oriented x 3 Discharge Data Allergies Allergy/AdvReac Type Severity Reaction Status Date / Time metoprolol Allergy Severe hyperglycem Verified 11/27/24 06:06 ia Procedures Performed Operation Date: 11/27/24 07:15 Actual Procedures p Transurethral Resection of Prostate(Not Applicable) - Lazaro Mittal MD Hospital Course (1) BPH (benign prostatic hyperplasia): (2) Elevated prostate specific antigen (PSA): Plan BPH status post TURP Postop day #1 Doing very well Voiding trial now and discharge home Patient voiding after dischargedischarge orders placed Course of antibiotics sent All questions answered I would like him to potentially start aspirin back tomorrow followed by Jayy 24 to 48 hours later Total Time Total Time Spent Total Time Spent (In Minutes): 20 Discharge Plan Discharge Items Patient Disposition: Home - Self-Care Reason For Visit: Benign Localized Prostatic Hyperplasia with Lower Discharge Diagnosis: Benign localized prostatic hyperplasia with lower urinary tract symptoms Activity: Per Instructions section Lifting: No more than 25 pounds Bathing Comment: Okay to shower after discharge Sexual Activity: Wait until after follow-up appointment Exercise/Sports: Wait until after follow-up appointment Non-emergency contact: Surgeon and Urologist Call non-emergency contact if: your symptoms worsen, your pain is not controlled, you have a fever and your temperature is above 101 Follow-up/Referrals: Ruth Ann Jacobs CRNP [Nurse Practitioner] - 12/17/24 1:00 pm Ivy George MD [Primary Care Provider] - Diet: Regular Addtl Attending Provider Instructions: Please take all medications as prescribed and keep all follow-ups as scheduled. Please call our office at [phone] with any questions, concerns or need to reschedule appointments for any reason. We are happy to assist you. Tips for your recovery at home: Dont be alarmed by brownish or reddish blood or clots in your urine. This is a result of the procedure. This may occur off and on for weeks to months after the procedure but should continue to improve. Drink plenty of fluids during the day (enough to keep your urine very light colored). This will help keep a healthy flow of urine. Do not lift >25 lbs until your followup Avoid constipation. Please use a stool softener (Colace) for the first two weeks after your procedure Be sure to finish the antibiotics as prescribed. If you go home with a catheter, please wash tubing where it enters your body twice daily with mild soap (Dove or Dial). Once your catheter is removed, expect some blood in your urine and some burning when you urinate. You should have an appointment to have this removed, if you do not please call our office to arrange. Pending Studies at Discharge: Yes (Pathology) Stand-Alone Forms: My [facility], Smoking Cessation Medications and DC Order Prescriptions: New sulfamethoxazole-trimethoprim [Bactrim DS] 800-160 mg tablet 1 tab PO BID 5 Days Qty: 10 0RF Continued nitroglycerin 0.4 mg tablet, sublingual 0.4 mg sublingual Q5M PRN (Reason: chest pain) Qty: 20 1RF Rx Instructions: do not exceed 3 doses per episode garlic 1,000 mg capsule 1,000 mg PO QAM multivitamin [Daily Multi-Vitamin] Tablet 1 tab PO QAM diltiazem HCl 120 mg capsule,ext.rel 24h degradable 120 mg PO QAM mesalamine 1.2 gram tablet,delayed release (DR/EC) 1.2 g PO UD mesalamine 1,000 mg Suppository 1 g NH HS cinnamon bark 500 mg Capsule 500 mg PO BID atorvastatin 40 mg tablet 40 mg PO QAM lisinopril 2.5 mg tablet 2.5 mg PO QAM Held Eliquis 5 mg tablet 5 mg PO BID Qty: 180 3RF Hold Instructions: Resume on 12/01/24. aspirin 81 mg tablet,delayed release (DR/EC) 81 mg PO QAM Hold Instructions: Resume on 11/29/24. Discharge Orders: Discharge Order (Routine); Ordered 11/28/24 Ordered By: Sarah Flaherty/Other Patient Handouts: TURP, TURP Home Recovery Admission Data Admit Date/Time: 11/27/24 08:38 Attending Provider: Lazaro Mittal Admit Provider: Lazaro Mittal Primary Care Provider: Ivy George Other Interventions: Discharge Summary Assessment (RN) Last Done: 11/28/24 09:59 Coding Level of Care Code 63310 IN/OBS DISCH 30 MIN/LESS Diagnoses BPH (benign prostatic hyperplasia) N40.1 Lower urinary tract symptom detail: unspecified Lower urinary tract symptom presence: symptoms present Elevated prostate specific antigen (PSA) R97.20
== END 2024-11-28 11:03 | disposition home or self-care (01) ==
LOC: ASU 05:43 → 3E 05:43